=== PATIENT | female | born 1930 | race Caucasian/White ===

== ENCOUNTER 2017-01-15 10:46 | Outpatient (CLI) | payer MEDICARE, OTHER ==
--- NOTE | 2017-01-16 15:55 | Mammography Report ---
DIGITAL SCREENING MAMMOGRAM: 01/15/2017 CLINICAL INDICATION: An 86-year-old with history of late childbearing, for screening. COMPARISON: 12/2015, 12/2014, 11/2012, 11/2011, 11/2010, 10/2009, 11/2008, 09/2007. TECHNIQUE: Routine CC and MLO projections were obtained of the breasts. FINDINGS: The breasts again demonstrate scattered fibroglandular densities bilaterally. Coarse, typi hero benign calcifications are present. No suspicious masses, clustered microcalcifications, or tutu ons of architectural distortion are identified. Intramammary lymph nodes are stable. IMPRESSION: BENIGN FINDINGS. RECOMMENDATION: ROUTINE ANNUAL SCREENING UNLESS OTHERWISE CLINICALLY INDICATED. BIRADS CATEGORY 2-BENIGN FINDINGS. STANDARD QUALIFYING STATEMENTS 1. This examination was reviewed with the aid of Computer-Aided Detection (CAD). 2. A negative or benign imaging report should not delay biopsy if clinically suspicious findings are present. Consider surgical consultation if warranted. More than 5% of cancers are not identified by i maging. 3. Dense breasts may obscure an underlying neoplasm. JOB #: [id number] EXT JOB #:[id number]
== END 2017-01-15 10:47 | disposition home or self-care (01) ==
LOC: DI.N 10:46
PROVIDERS: ATTEND Internal Medicine
DX: Z12.31 Encounter for screening mammogram for malignant neoplasm of breast (principal)
CPT/HCPCS: 77067

== ENCOUNTER 2017-01-27 08:39 | Outpatient (CLI) | payer MEDICARE, OTHER | END 2017-01-27 08:40 | disposition critical access hospital (66) | LOC: EMS 08:39 | PROVIDERS: ATTEND Surgery | DX: S79.912A Unspecified injury of left hip, initial encounter (principal); W01.10XA Fall on same level from slipping, tripping and stumbling with subsequent striking against unspecified object, initial encounter; Y92.018 Other place in single-family (private) house as the place of occurrence of the external cause | CPT/HCPCS: A0425; A0427 ==

== ENCOUNTER 2017-01-27 08:57 | Inpatient (IN) | payer MEDICARE, OTHER ==
[2017-01-27] MEDS ORDERED: HYDROmorphone 1 MG/ML SYRINGE IVP STA ×3 (09:01→13:42)
[2017-01-27] MEDS ORDERED: ONDANSETRON 4 MG/2 ML VIAL IVP STA (09:01)
[2017-01-27] MEDS ORDERED: SODIUM CHLORIDE 0.9% 1,000 ML IV ONE (09:01)
--- NOTE | 2017-01-27 09:05 | ED Physician Documentation ---
History of Present Illness - Stated complaint Stated Complaint: GLF - Additonal information Additional information: hx from pt 86 female on coumadin for valve issue tripped over rug on porch and fell on L hip did not hit head does not heave head neck or back pain fell on L hip and has severe L hip and deformity Review of Systems Cardiac: denies: Chest pain / pressure GI: denies: Abdominal Pain Musculoskeletal: reports: Extremity pain, Joint pain. 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 - Present Medications Home Medications: Ambulatory Orders Medication Instructions Recorded Confirmed Cholestyramine [Cholestyramine 1 gm MC UD 10/22/13 01/27/17 Resin] Folic Acid 1 mg PO DAILY 10/22/13 01/27/17 Lansoprazole [Prevacid] 15 mg PO DAILY 10/22/13 01/27/17 Levothyroxine [Synthroid] 200 mcg PO QDAC 10/22/13 01/27/17 Losartan Potassium [Cozaar] 100 mg PO DAILY 10/22/13 01/27/17 Methotrexate Sodium [Methotrexate] 2.5 mg PO DAILY 10/22/13 01/27/17 Simvastatin [Zocor] 20 mg PO DAILY 10/22/13 01/27/17 Warfarin [Coumadin] 5 mg PO DAILY 10/22/13 01/27/17 Alendronate [Fosamax] 70 mg PO UD 01/27/17 01/27/17 - Allergies Allergies/Adverse Reactions: Allergies Allergy/AdvReac Type Severity Reaction Status Date / Time Sulfa (Sulfonamide Allergy Rash Verified 10/22/13 12:21 Antibiotics) - Social History Does the pt smoke?: No Smoking Status: Never smoker Does the pt drink ETOH?: No Does the pt have substance abuse?: No - Immunizations Immunizations are current?: No Immunizations: TDAP >10years/unknown PD ED PE NORMAL - Vitals Vital signs reviewed: Yes - General General: Alert and oriented X 3 - HEENT HEENT: Atraumatic, PERRL - Neck Neck: No bony TTP - Cardiac Cardiac: RRR - Respiratory Respiratory: No respiratory distress, Clear bilaterally - Abdomen Abdomen: Soft, Non tender - Derm Derm: Normal color - Extremities Extremities: Other (deformity to L hip ADD and internally roatted, also TTP to mid femur with some swelling, distal leg and knee NT, MSV intact) Results - Vitals Vitals: Vital Signs - 24 hr 01/27/17 01/27/17 01/27/17 09:00 10:00 10:30 Temperature 36.8 C Heart Rate 74 90 87 Respiratory 18 14 21 Rate Blood Pressure 152/59 H 144/52 H 150/61 H O2 Saturation 100 86 L 95 01/27/17 01/27/17 10:55 12:37 Temperature Heart Rate 86 84 Respiratory 14 18 Rate Blood Pressure 157/62 H 137/100 H O2 Saturation 100 97 Oxygen O2 Source Nasal cannula Oxygen Flow Rate 2 - EKG (time done) 1047 Rate: Rate (enter#) (85) Rhythm: NSR Acme: Normal Intervals: Normal AR QRS: Normal Ischemia: Normal ST segments - Labs Labs: Laboratory Tests 01/27/17 01/27/17 01/27/17 09:13 10:50 11:45 WBC 7.2 RBC 4.48 Hgb 11.9 L Hct 36.9 L MCV 82.2 MCH 26.5 L MCHC 32.2 RDW 17.7 H Plt Count 233 MPV 8.3 Neut # 6.0 Lymph # 0.9 L Coffey # 0.3 Eos # 0.0 Baso # 0.1 Absolute Nucleated RBC 0.00 Nucleated RBCs 0.0 Whole Blood INR 5.2 H* Sodium Potassium Chloride Carbon Dioxide Anion Gap BUN Creatinine Estimated GFR (MDRD) Glucose Calcium Blood Type O POSITIVE Antibody Screen NEGATIVE Crossmatch IS Only See Detail 01/27/17 01/27/17 01/27/17 11:45 11:45 11:45 WBC RBC Hgb 11.5 L Hct MCV MCH MCHC RDW Plt Count MPV Neut # Lymph # Coffey # Eos # Baso # Absolute Nucleated RBC Nucleated RBCs Whole Blood INR Sodium 139 Potassium 4.7 Chloride 108 Carbon Dioxide 21 Anion Gap 10.0 BUN 25 H Creatinine 1.0 Estimated GFR (MDRD) 53 L Glucose 126 H Calcium 8.6 Blood Type O POSITIVE Antibody Screen Crossmatch IS Only - Rads (name of study) CTH Radiology: See rad report (no bleed) pelvis/hip/femur Radiology: See rad report (angulated prox femur fx) CXR Radiology: See rad report (no acute) PD MEDICAL DECISION MAKING - ED course ED course: after seeing xray paged orthopedics Dr Pitts orthopedics was in the OR on another case in anticipation of pt going surgery today ordered vit K and K centra to rapidly reverse coumadin and prep pt for surgery Dr Pitts arrived in ER to eval pt and states he would prefer to give FFP rather than K-centra and operate tomorrow not today - so cancelled K centra but had been already been mixed by pharmacy per Dr Pitts give FFP 2 units now and he will order more later Dr Pitts gently reduced the fracture in the ER to be admitted to hospitalist with ortho consult I spoke to pt s cardiology group at [facility] - she is on lifelong coumadin for prior PEs DVTs, she has pulm HTN, CAD and vasovagal syncope, her last echo in 2012 showed EF 65-70%, grade 1 diastolic dysfxn, mild mitral stenosis and regurge Departure - Departure Disposition: 66 [facility] DC/Xfer Clinical Impression: Femur fracture Qualifiers: Encounter type: initial encounter Femur location: unspecified portion of femur Fracture type: closed Fracture morphology: unspecified fracture morphology Laterality: left Qualified Code(s): S72.92XA - Unspecified fracture of left femur, initial encounter for closed fracture Condition: Good
[2017-01-27] MEDS ORDERED: ONDANSETRON 4 MG/2 ML VIAL ONE (09:39)
[2017-01-27] MEDS ORDERED: HYDROmorphone 1 MG/ML SYRINGE ONE (09:39)
--- NOTE | 2017-01-27 09:58 | XRAY Preliminary Report ---
Exam: XR Hip w/Pelvis 2-3V LT IMPRESSION: Oblique angulated fracture of the proximal left femur. [facility] SITE ID: [id number]
--- NOTE | 2017-01-27 09:59 | XRAY Preliminary Report ---
Exam: XR Femur 2V LT IMPRESSION: Oblique angulated fracture of the proximal left femur. [facility] SITE ID: [id number]
--- NOTE | 2017-01-27 10:00 | XRAY Report ---
EXAM: LEFT HIP AND PELVIS RADIOGRAPHY EXAM DATE: 01/27/2017 09:44 AM. HISTORY: Fall deformity. COMPARISONS: None. TECHNIQUE: 1 view pelvis 3 views left hip. FINDINGS: Bones: There is an angulated oblique fracture of the proximal left femur just inferior to the lesser trochanter. There is lateral angulation of the fracture apex. The femoral head and neck appear intact . Joints: The bilateral hip, pubis symphysis, and sacroiliac joints are preserved. Soft Tissues: Normal. No soft tissue swelling. IMPRESSION: Oblique angulated fracture of the proximal left femur. [facility] Referring Provider Line: [phone] SITE ID: [id number]
--- NOTE | 2017-01-27 10:01 | XRAY Report ---
EXAM: LEFT FEMUR RADIOGRAPHY EXAM DATE: 01/27/2017 09:44 AM. CLINICAL HISTORY: Fall deformity. COMPARISON: None. TECHNIQUE: 2 views. FINDINGS: Bones: Oblique angulated fracture of the proximal left femur just inferior to the lesser trochanter. Joints: The visualized hip and knee joints are normal. No effusions. Soft Tissues: Normal. No soft tissue swelling. IMPRESSION: Oblique angulated fracture of the proximal left femur. [facility] Referring Provider Line: [phone] SITE ID: [id number]
--- NOTE | 2017-01-27 10:18 | CT Preliminary Report ---
Exam: CT Head W/O IMPRESSION: 1. No acute intracranial abnormality identified. Probable age-related parenchymal volume loss and chr onic microvascular ischemic change. [facility] SITE ID: [id number]
--- NOTE | 2017-01-27 10:20 | CT Report ---
EXAM: CT HEAD EXAM DATE: 01/27/2017 10:04 AM. CLINICAL HISTORY: Fall with deformity, elevated INR. COMPARISON: None. TECHNIQUE: Multiaxial CT images were obtained from the foramen magnum to the vertex. IV contrast: Non e. Reformats: Coronal. In accordance with CT protocol optimization, one or more of the following dose reduction techniques w ere utilized for this exam: automated exposure control, adjustment of mA and/or KV based on patient s ize, or use of iterative reconstructive technique. FINDINGS: Parenchyma: Evidence of diffuse parenchymal volume loss. No acute intracranial abnormality identified . Mild low-attenuation in the periventricular and subcortical white matter. No acute hemorrhage, mass effect, or midline shift. Extraaxial Spaces: No acute extra-axial collection. Ventricles: Appropriate in size and configuration. Sinuses: Small amount of ethmoid opacity, otherwise visualized portions are clear. Bones: No depressed skull fracture. Other: Atherosclerotic vascular calcification. IMPRESSION: 1. No acute intracranial abnormality identified. Probable age-related parenchymal volume loss and chr onic microvascular ischemic change. [facility] Referring Provider Line: [phone] SITE ID: [id number]
[2017-01-27 11:16] LABS: BASOPHILS # (AUTO) 0.1 10^3/uL (0.0-0.1); EOSINOPHILS % (AUTO) 0.6 %; HCT - HEMATOCRIT 36.9 % (37.0-47.0); HGB - HEMOGLOBIN 11.9 g/dL (12.0-16.0); LYMPHOCYTES # (AUTO) 0.9 10^3/uL (1.5-3.5); LYMPHOCYTES % (AUTO) 12.4 %; MEAN CORPUSCULAR HEMOGLOBIN 26.5 pg (27.0-31.0); MEAN CORPUSCULAR HGB CONC 32.2 g/dL (32.0-36.0); MEAN CORPUSCULAR VOLUME 82.2 fL (81.0-99.0); MEAN PLATELET VOLUME 8.3 fL (7.9-10.8); MONOCYTES # (AUTO) 0.3 10^3/uL (0.0-1.0); MONOCYTES % (AUTO) 3.7 %; NEUTROPHILS % (AUTO) 82.3 %; RED BLOOD COUNT 4.48 10^6/uL (4.20-5.40); RED CELL DISTRIBUTION WIDTH 17.7 % (12.0-15.0); UNCORRECTED WHITE BLOOD COUNT 7.2 x10^3/uL; WHITE BLOOD COUNT 7.2 x10^3/uL (4.8-10.8)
[2017-01-27] MEDS ORDERED: PHYTONADIONE 10 MG/ML AMP SUBQ STA (11:16)
[2017-01-27] MEDS ORDERED: PROTHROMBIN COMPLEX CONC 500 UNIT VIAL IVP STA (11:21)
[2017-01-27] MEDS ORDERED: PHYTONADIONE 10 MG/ML AMP ONE (11:30)
[2017-01-27] MEDS ORDERED: PROTHROMBIN COMPLEX CONC 500 UNIT VIAL IVP SCH (12:00)
[2017-01-27 12:10] LABS: CALCIUM 8.6 mg/dL (8.5-10.3); POTASSIUM 4.7 mmol/L (3.5-5.0)
--- NOTE | 2017-01-27 12:25 | XRAY Preliminary Report ---
Exam: XR Chest 1 View IMPRESSION: No focal consolidation. [facility] SITE ID: [id number]
--- NOTE | 2017-01-27 12:28 | XRAY Report ---
EXAM: CHEST RADIOGRAPHY EXAM DATE: 01/27/2017 12:14 PM. CLINICAL HISTORY: Pre-op. COMPARISON: None. TECHNIQUE: 1 view. FINDINGS: Lungs/Pleura: No focal opacities evident. No pleural effusion. No pneumothorax. Mediastinum: Within exam limitations, cardiomediastinal contour is normal. Other: None. IMPRESSION: No focal consolidation. [facility] Referring Provider Line: [phone] SITE ID: [id number]
--- NOTE | 2017-01-27 13:04 | HISTORY & PHYSICAL EXAMINATION ---
HPI - Admitted From Admitted from: ED (Orthopaedic Surgery was consulted by the ED about this 86 yo female who sustained an injury to her Left Hip when she tripped over a rug in her home and fell to floor. Denies LOC, syncope, or ather precipitating events.) - History Obtained From Records Reviewed: Old records reviewed History obtained from: Patient, Family Exam limitations: No limitations - History of Present Illness Severity at the worst: reports: Moderate Pain Quality: reports: Sharp Context-Pain started w/: reports: Other (Ground level fall.) Timing: reports: Abrupt onset Duration: reports: Hours: (4) Improved with: reports: Rest, Other (Positioning.) Worsened by: reports: Exertion, Movement, Palpation PMH/PSH - Past Medical History Cardiovascular: positive: Hypertension, High cholesterol, Valve disorder Respiratory: positive: Other (History of PE.) Neuro: positive: None Endocrine/Autoimmune: positive: None GI: positive: None : positive: None HEENT: positive: Other (Wears glasses.) Psych: positive: None Derm: positive: None MRSA Hx?: No - 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 - Social History Does the pt smoke?: No Smoking Status: Never smoker Does the pt drink ETOH?: No Does the pt have substance abuse?: No - POLST Patient has POLST: No POLST Status: Full Code Meds/Allgy - Home Medications Home Medications: Ambulatory Orders Medication Instructions Recorded Confirmed Cholestyramine [Cholestyramine 1 gm [facility] 10/22/13 01/27/17 Resin] Folic Acid 1 mg PO DAILY 10/22/13 01/27/17 Lansoprazole [Prevacid] 15 mg PO DAILY 10/22/13 01/27/17 Levothyroxine [Synthroid] 200 mcg PO QDAC 10/22/13 01/27/17 Losartan Potassium [Cozaar] 100 mg PO DAILY 10/22/13 01/27/17 Methotrexate Sodium [Methotrexate] 2.5 mg PO DAILY 10/22/13 01/27/17 Simvastatin [Zocor] 20 mg PO DAILY 10/22/13 01/27/17 Warfarin [Coumadin] 5 mg PO DAILY 10/22/13 01/27/17 Alendronate [Fosamax] 70 mg PO UD 01/27/17 01/27/17 - Allergies Allergies/Adverse Reactions: Allergies Allergy/AdvReac Type Severity Reaction Status Date / Time Sulfa (Sulfonamide Allergy Rash Verified 10/22/13 12:21 Antibiotics) Review of Systems - Hematologic/Lymphatic Hematologic/Lymphatic: reports: Blood clots (History of PE, DVTs for which she is on Coumadin.) - All Other Systems All Other Systems: reports: Reviewed and negative Exam - Vital Signs Reviewed Vital Signs: Yes Vital Signs: Vital Signs x48h Temp Pulse Resp BP Pulse Ox 01/27/17 12:37 84 18 137/100 H 97 01/27/17 10:55 86 14 157/62 H 100 01/27/17 10:30 87 21 150/61 H 95 01/27/17 10:00 90 14 144/52 H 86 L 01/27/17 09:00 36.8 C 74 18 152/59 H 100 - Physical Exam General Appearance: positive: Mild distress Eyes Bilateral: positive: Normal inspection ENT: positive: ENT inspection nml Neck: positive: Nml inspection Respiratory: positive: Chest non-tender, No respiratory distress, Breath sounds nml Cardiovascular: positive: Regular rate & rhythm Peripheral Pulses: positive: 2+ Abdomen: positive: Non-tender, Nml bowel sounds, No distention. negative: Guarding Back: positive: Nml inspection Skin: positive: Color nml, No rash, Warm, Dry Extremities: positive: Other (Tender to any manipulation of Left Leg at hip. Leg held in flexed internally rotated position but no shortening.). negative: Calf tenderness, Adriano's sign/cords Neurologic/Psychiatric: positive: Oriented x3, Motor nml, Sensation nml, Mood/ affect nml Results - Lab Results Fish Bones: 01/27/17 10:50 01/27/17 11:45 Other Lab Results: Lab Results x24hrs 01/27/17 01/27/17 01/27/17 Range/Units 11:45 11:45 11:45 WBC (4.8-10.8) x10^3/uL RBC (4.20-5.40) 10^6/uL Hgb (12.0-16.0) g/dL Hct (37.0-47.0) % MCV (81.0-99.0) fL MCH (27.0-31.0) pg MCHC (32.0-36.0) g/dL RDW (12.0-15.0) % Plt Count (130-450) 10^3/uL MPV (7.9-10.8) fL Neut # (1.5-6.6) 10^3/uL Lymph # (1.5-3.5) 10^3/uL Crittenden # (0.0-1.0) 10^3/uL Eos # (0.0-0.7) 10^3/uL Baso # (0.0-0.1) 10^3/uL Absolute Nucleated RBC x10^3/uL Nucleated RBCs /100WBC Whole Blood INR (0.8-1.2) Sodium 139 (135-145) mmol/L Potassium 4.7 (3.5-5.0) mmol/L Chloride 108 (101-111) mmol/L Carbon Dioxide 21 (21-32) mmol/L Anion Gap 10.0 (6-13) BUN 25 H (6-20) mg/dL Creatinine 1.0 (0.4-1.0) mg/dL Estimated GFR (MDRD) 53 L (>89) Glucose 126 H (70-100) mg/dL Calcium 8.6 (8.5-10.3) mg/dL Blood Type O POSITIVE O POSITIVE Antibody Screen NEGATIVE Crossmatch IS Only See Detail 01/27/17 01/27/17 Range/Units 10:50 09:13 WBC 7.2 (4.8-10.8) x10^3/uL RBC 4.48 (4.20-5.40) 10^6/uL Hgb 11.9 L (12.0-16.0) g/dL Hct 36.9 L (37.0-47.0) % MCV 82.2 (81.0-99.0) fL MCH 26.5 L (27.0-31.0) pg MCHC 32.2 (32.0-36.0) g/dL RDW 17.7 H (12.0-15.0) % Plt Count 233 (130-450) 10^3/uL MPV 8.3 (7.9-10.8) fL Neut # 6.0 (1.5-6.6) 10^3/uL Lymph # 0.9 L (1.5-3.5) 10^3/uL [place]enden # 0.3 (0.0-1.0) 10^3/uL Eos # 0.0 (0.0-0.7) 10^3/uL Baso # 0.1 (0.0-0.1) 10^3/uL Absolute Nucleated RBC 0.00 x10^3/uL Nucleated RBCs 0.0 /100WBC Whole Blood INR 5.2 H* (0.8-1.2) Sodium (135-145) mmol/L Potassium (3.5-5.0) mmol/L Chloride (101-111) mmol/L Carbon Dioxide (21-32) mmol/L Anion Gap (6-13) BUN (6-20) mg/dL Creatinine (0.4-1.0) mg/dL Estimated GFR (MDRD) (>89) Glucose (70-100) mg/dL Calcium (8.5-10.3) mg/dL Blood Type Antibody Screen Crossmatch IS Only - Diagnostic Imaging Results Diagnostic Imaging Results: positive: Read independently (Left femur comminuted subtrochanteric Fracture.) Impression/Plan - Problem List Problem List: Displaced Left Femur Comminuted Subtrochanteric Fracture, Closed. Fall from tripping, slipping, or stumbling. Plan: 1. Admit to Hospitalists. 2. NPO after midnight. 3. Normalize coags with FFP. Recheck INR in am and adjust as necessary. 4. To OR tomorrow for antegrade IM Nailing Left Femur Fracture.
[2017-01-27] MEDS ORDERED: diazePAM 5 MG TABLET PO STA (13:25)
[2017-01-27] MEDS ORDERED: diazePAM 5 MG TABLET PO ONE (13:26)
[2017-01-27] MEDS ORDERED: ONDANSETRON ODT 4 MG TABLET TL PRN (13:27)
--- NOTE | 2017-01-27 13:43 | HISTORY & PHYSICAL EXAMINATION ---
Chief Complaint - Chief Complaint Chief Complaint: Left hip/leg pain History of Present Illness - Admitted From Admitted From:: Emergency department - History Obtained From Records Reviewed: Yes History obtained from: Patient - History of Present Illness Pain/Problem Location Description: Left leg HPI Comment/Other: PT is a relatively healthy 86 year old female. She is on warfarin for pulmonic valve disease with supratherapeutic INR today of 5.1. She has controlled HTN and is on statin for hyperlipidemia. She denies recent falls, injury or illness prior to today. PT was out on her sun porch when she got a bucket to fill bird bath. She tripped and fell landing on her left side. She had immediate pain and was unable to get up. She denies head trauma or LOC. She denies syncope, dizziness , lightheadedness or blackout prior to her fall. SHE called for her who came within a couple minutes. EMS was called and she was transported to the ED, She was found to have an oblique angulated proximal left femur fracture. She was seen by orthopedic surgery who agreed to perform ORIF. Her INR will need reversed prior to surgery. She was T/C and screened for FFP. FFP was started in the ED. Review of Systems - Constitutional Constitutional: denies: Fatigue, Fever, Chills, Weakness, Night sweats - Eyes Eyes: denies: Pain, Irritation, Blurred vision, Vision loss - Ears, Nose & Throat Ears, Nose & Throat: denies: Ear pain, Hearing loss, Hearing aids - Cardiovascular Cariovascular: denies: Irregular heart rate, Palpitations, Chest pain, Edema, Lightheadedness, Syncope - Respiratory Respiratory: denies: Cough, Wheezing, SOB at rest, SOB with exertion - Gastrointestinal Gastrointestinal: denies: Abdominal pain, Diarrhea, Nausea, Vomiting - Genitourinary Genitourinary: denies: Dysuria, Frequency, Urgency - Musculoskeletal Musculoskeletal: reports: Muscle pain (Secondary to fall and fracture), Limited range of motion (Secondary to fall and fracture). denies: Back pain - Integumentary Integumentary: denies: Rash, Pruritis - Neurological Neurological: denies: General weakness, Focal weakness, Headache, Dizziness - Psychiatric Psychiatric: denies: Depression, Anxiety - Endocrine Endocrine: denies: Polyuria, Polydypsia - Hematologic/Lymphatic Hematologic/Lymphatic: reports: Other (Bruising from warfarin) History - Past Medical History Cardiovascular: reports: Hypertension, High cholesterol, Valve disorder Respiratory: reports: Other (History of PE.) Neuro: reports: None Endocrine/Autoimmune: reports: None GI: reports: None : reports: None HEENT: reports: Other (Wears glasses.) Psych: reports: None Derm: reports: None MRSA Hx?: No - 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 - Substance History Use: Uses substance without health or social issues: NONE Abuse: Recurrent use of substance despite neg consequences: NONE Dependence: Experiences withdrawal or developed tolerances: NONE - POLST Patient has POLST: No POLST Status: Full Code Meds/Allgy - Home Medications Home Medications: Ambulatory Orders Medication Instructions Recorded Confirmed Cholestyramine [Cholestyramine 1 gm [facility] 10/22/13 01/27/17 Resin] Folic Acid 1 mg PO DAILY 10/22/13 01/27/17 Lansoprazole [Prevacid] 15 mg PO DAILY 10/22/13 01/27/17 Levothyroxine [Synthroid] 200 mcg PO QDAC 10/22/13 01/27/17 Losartan Potassium [Cozaar] 100 mg PO DAILY 10/22/13 01/27/17 Methotrexate Sodium [Methotrexate] 2.5 mg PO DAILY 10/22/13 01/27/17 Simvastatin [Zocor] 20 mg PO DAILY 10/22/13 01/27/17 Warfarin [Coumadin] 5 mg PO DAILY 10/22/13 01/27/17 Alendronate [Fosamax] 70 mg PO UD 01/27/17 01/27/17 - Allergies Allergies/Adverse Reactions: Allergies Allergy/AdvReac Type Severity Reaction Status Date / Time Sulfa (Sulfonamide Allergy Rash Verified 10/22/13 12:21 Antibiotics) Exam - Vital Signs Reviewed Vital Signs: Yes Vital Signs: Vital Signs x48h Temp Pulse Resp BP Pulse Ox 01/27/17 12:37 84 18 137/100 H 97 01/27/17 10:55 86 14 157/62 H 100 01/27/17 10:30 87 21 150/61 H 95 06/11/17 10:00 90 14 144/52 H 86 L 01/27/17 09:00 36.8 C 74 18 152/59 H 100 - Physical Exam General Appearance: positive: No acute distress, Alert Eyes Bilateral: positive: Normal inspection, PERRL, EOMI, Other (arcus sinilis) ENT: positive: Pharynx nml. negative: Purulent nasal drainage, Pharyngeal erythema Neck: positive: Nml inspection, No JVD Respiratory: positive: Chest non-tender, No respiratory distress, Breath sounds nml Cardiovascular: positive: Regular rate & rhythm, No gallop, Systolic murmur. negative: JVD present Peripheral Pulses: positive: 2+ Abdomen: positive: Non-tender, No organomegaly, No distention Back: positive: Other (Exam limitied by hip fracture) Skin: positive: No rash, Warm, Dry Extremities: positive: Other (Left leg angulated with internal rotation) Neurologic/Psychiatric: positive: Oriented x3, CN's nml (2-12) Conclusion/Plan - Problem List (1) Femur fracture Conclusion/Plan: Secondary to a mechanical fall. Oblique angulated proximal left femur fracture. Will need surgical repair. INR 5.1 receiving FFP. Plan: Pain control. Reverse INR. Surgery anticipated tomorrow if INR acceptable. Qualifiers: Encounter type: initial encounter Femur location: unspecified portion of femur Fracture type: closed Fracture morphology: unspecified fracture morphology Laterality: left Qualified Code(s): S72.92XA - Unspecified fracture of left femur, initial encounter for closed fracture (2) HTN (hypertension) Conclusion/Plan: Controlled on home medications. Will monitor VS. Continue home medications (3) Pulmonic valve incompetence Conclusion/Plan: PT on warfarin for OAC. INR 5.1 Will reverse INR today for surgery. - Lab Results Fish Bones: 01/27/17 11:45 01/27/17 11:45 - Diagnostic Imaging Results Diagnostic Imaging Results: positive: Prelim report reviewed Issues/Core Measures - Anticipated LOS Anticipated Stay Length: 2 or more midnights - DVT/VTE - Prophylaxis VTE/DVT Device ordered at admit?: Yes VTE/DVT Prophylaxis med ordered at admit?: No Not Ordered - Medical Reason: Contraindicated - Stroke - Rehab Assessment Rehab services assessment to be ordered?: No
[2017-01-27] MEDS: SODIUM CHLORIDE FLUSH 0.9% 10 ML SYRINGE IVP SCH ×2 (14:50→21:10)
[2017-01-27] MEDS: PANTOPRAZOLE 40 MG TABLET PO SCH ×2 (14:57→21:10)
[2017-01-27] MEDS: HYDROcod/ACETAM 5/325 MG TABLET PO PRN ×2 (16:27→22:21)
[2017-01-27 20:24] LABS: INR 3.1 (0.8-1.2); PT - PROTHROMBIN TIME 35.2 secs (9.9-12.6)
[2017-01-27] MEDS: METHOCARBAMOL 500 MG TABLET PO PRN (21:10)
[2017-01-27] MEDS: ATORVASTATIN 10 MG TABLET PO SCH (21:10)
[2017-01-28] MEDS: HYDROmorphone 1 MG/ML SYRINGE IVP PRN ×3 (00:18→15:28)
[2017-01-28] MEDS: SODIUM CHLORIDE FLUSH 0.9% 10 ML SYRINGE IVP PRN ×2 (00:19→05:44)
[2017-01-28 02:57] LABS: INR 2.2 (0.8-1.2); PT - PROTHROMBIN TIME 25.6 secs (9.9-12.6)
[2017-01-28] MEDS: METHOCARBAMOL 500 MG TABLET PO PRN ×2 (03:04→11:02)
[2017-01-28] MEDS: SODIUM CHLORIDE 0.9% 1,000 ML IV SCH ×2 (05:44→21:53)
[2017-01-28] MEDS: HYDROcod/ACETAM 5/325 MG TABLET PO PRN (05:45)
[2017-01-28] MEDS: SODIUM CHLORIDE FLUSH 0.9% 10 ML SYRINGE IVP SCH ×3 (06:13→21:56)
[2017-01-28] MEDS: LEVOTHYROXINE 100 MCG TABLET PO SCH (06:14)
[2017-01-28] MEDS: CHOLESTYRAMINE 4 GM PACKET PO SCH (08:37)
[2017-01-28] MEDS: FOLIC ACID 1 MG TABLET PO SCH (08:37)
[2017-01-28] MEDS: PANTOPRAZOLE 40 MG TABLET PO SCH ×2 (08:37→21:53)
[2017-01-28] MEDS: LOSARTAN 50 MG TABLET PO SCH (08:37)
[2017-01-28 08:42] LABS: INR 1.7 (0.8-1.2); PT - PROTHROMBIN TIME 18.7 secs (9.9-12.6)
[2017-01-28] MEDS: POLYETHYLENE GLYCOL 3350 17 GM PACKET PO SCH (09:44)
--- NOTE | 2017-01-28 10:25 | PROVIDER PROGRESS NOTE ---
Assessment/Plan - Problem List (1) Femur fracture Qualifiers: Encounter type: initial encounter Femur location: unspecified portion of femur Fracture type: closed Fracture morphology: unspecified fracture morphology Laterality: left Qualified Code(s): S72.92XA - Unspecified fracture of left femur, initial encounter for closed fracture Assessment/Plan: PT will go to OR today for ORIF. INR 1.7 Will get 2 additional units of FFP to decrease INR further for surgical preparation. (2) HTN (hypertension) Assessment/Plan: Mildly elevated during hospitalization. No changes made Mild elevation likely from discomfort. (3) Pulmonic valve incompetence Assessment/Plan: Reversing INR due to need for surgery. Will cover with Heparin and restart warfarin tomorrow if OK with surgery team - Current Meds Current Meds: Current Medications Generic Name Dose Route Start Last Admin Trade Name Freq PRN Reason Stop Dose Admin Acetaminophen/Hydrocodone Bitart 1 tab 01/27/17 13:24 01/28/17 05:45 Anderson 5/325 PO 1 tab Q4H PRN Administration PAIN Atorvastatin Calcium 10 mg 01/27/17 21:00 01/27/17 21:10 Lipitor PO 10 mg QPM GRANT Administration Cholestyramine/Sucrose 4 gm 01/28/17 09:00 01/28/17 08:37 Questran PO 4 gm DAILY GRANT Administration Folic Acid 1 mg 01/28/17 09:00 01/28/17 08:37 PO 1 mg DAILY GRANT Administration Hydromorphone HCl 1 mg 01/27/17 13:23 01/28/17 08:32 Dilaudid Inj IVP 1 mg Q2H PRN Administration PAIN Sodium Chloride 1,000 mls @ 125 mls/hr 01/28/17 05:00 01/28/17 05:44 Normal Saline 0.9% IV 125 mls/hr .Q8H GRANT Administration Levothyroxine Sodium 200 mcg 01/28/17 07:00 01/28/17 06:14 Synthroid PO 200 mcg QDAC GRANT Administration Losartan Potassium 100 mg 01/28/17 09:00 01/28/17 08:37 Cozaar PO 100 mg DAILY GRANT Administration Methocarbamol 750 mg 01/27/17 13:22 01/28/17 03:04 Robaxin PO 750 mg Q6H PRN Administration Spasms Pantoprazole Sodium 40 mg 01/27/17 14:00 01/28/17 08:37 Protonix PO 40 mg BID GRANT Administration Polyethylene Glycol 17 gm 01/28/17 09:00 01/28/17 09:44 Miralax PO Not Given DAILY GRANT Sodium Chloride 10 ml 01/27/17 13:27 01/28/17 05:44 Normal Saline Flush 0.9% IVP 10 ml PRN PRN Administration NEEDED PER PROVIDER ORDERS Sodium Chloride 10 ml 01/27/17 14:00 01/28/17 06:13 Normal Saline Flush 0.9% IVP 10 ml Q8HR GRANT Administration - Lab Result Lab results reviewed: Yes Fish Bone Diagrams: 01/27/17 11:45 01/27/17 11:45 - Additional Planning Condition/Complexity: Stable My Orders: My Active Orders 01/28/17 10:02 Transfuse Fresh Frozen Plasma [RC] ONCE Plan Discussed with:: Patient Time Spent: Less than 15 minutes Subjective - Subjective Patient Reports: Dizzines (Mild dizziness today), Pain (Continues to have pain in the left leg. Mostly controlled with current medication.) Nursing Reports: No Complaints Objective Vital Signs: Vital Signs - 24 hr 01/27/17 01/27/17 01/27/17 14:00 14:30 16:11 Temperature 37 C 36.6 C 36.6 C Heart Rate 90 Heart Rate [ 87 90 Brachial] Respiratory 14 18 16 Rate Blood Pressure 146/56 H Blood Pressure 153/73 H [Left Brachial artery] Blood Pressure 140/61 H [Right Brachial artery] O2 Saturation 100 97 96 01/28/17 01/28/17 01/28/17 00:00 00:12 00:46 Temperature 36.7 C 37.1 C Heart Rate Heart Rate [ 85 82 80 Brachial] Respiratory 18 18 Rate Blood Pressure Blood Pressure 134/69 H [Left Brachial artery] Blood Pressure 151/68 H [Right Brachial artery] O2 Saturation 94 92 97 01/28/17 01/28/17 01/28/17 00:51 01:22 01:42 Temperature 36.4 C L 36.4 C L 36.6 C Heart Rate Heart Rate [ 82 84 78 Brachial] Respiratory 18 24 19 Rate Blood Pressure Blood Pressure [Left Brachial artery] Blood Pressure 137/65 H 139/70 H 141/67 H [Right Brachial artery] O2 Saturation 98 97 98 01/28/17 01/28/17 01/28/17 05:45 06:26 07:01 Temperature 36.3 C L 36.8 C 37.3 C Heart Rate Heart Rate [ 86 84 86 Brachial] Respiratory 22 23 19 Rate Blood Pressure Blood Pressure [Left Brachial artery] Blood Pressure 166/69 H 151/65 H 149/65 H [Right Brachial artery] O2 Saturation 97 96 97 01/28/17 07:21 Temperature 36.7 C Heart Rate Heart Rate [ 88 Brachial] Respiratory 20 Rate Blood Pressure Blood Pressure [Left Brachial artery] Blood Pressure 152/64 H [Right Brachial artery] O2 Saturation 97 Oxygen O2 Source Nasal cannula I&O (Last 24 Hrs): Intake and Output Totals x24h 01/26/17 01/27/17 01/28/17 23:59 23:59 23:59 Intake Total 266 638 Output Total 750 350 Balance -484 288 General: Alert, No acute distress HEENT: PERRLA, EOMI Neck: No JVD Neuro: Alert Cardiovascular: Regular rate, Other (2/6 TODD at LUSB) Respiratory: No respiratory distress, Breath sounds nml Abdomen: Normal bowel sounds - Results Results: Laboratory Results WBC 7.2 x10^3/uL (4.8-10.8) 01/27/17 10:50 RBC 4.48 10^6/uL (4.20-5.40) 01/27/17 10:50 Hgb 11.5 g/dL (12.0-16.0) L 01/27/17 11:45 Hct 36.9 % (37.0-47.0) L 01/27/17 10:50 MCV 82.2 fL (81.0-99.0) 01/27/17 10:50 MCH 26.5 pg (27.0-31.0) L 01/27/17 10:50 MCHC 32.2 g/dL (32.0-36.0) 01/27/17 10:50 RDW 17.7 % (12.0-15.0) H 01/27/17 10:50 Plt Count 233 10^3/uL (130-450) 01/27/17 10:50 MPV 8.3 fL (7.9-10.8) 01/27/17 10:50 Neut # 6.0 10^3/uL (1.5-6.6) 01/27/17 10:50 Lymph # 0.9 10^3/uL (1.5-3.5) L 01/27/17 10:50 Borden # 0.3 10^3/uL (0.0-1.0) 01/27/17 10:50 Eos # 0.0 10^3/uL (0.0-0.7) 01/27/17 10:50 Baso # 0.1 10^3/uL (0.0-0.1) 01/27/17 10:50 Absolute Nucleated RBC 0.00 x10^3/uL 01/27/17 10:50 Nucleated RBCs 0.0 /100WBC 01/27/17 10:50 PT 18.7 secs (9.9-12.6) H 01/28/17 08:30 INR 1.7 (0.8-1.2) H 01/28/17 08:30 Whole Blood INR 5.2 (0.8-1.2) H* 01/27/17 09:13 Sodium 139 mmol/L (135-145) 01/27/17 11:45 Potassium 4.7 mmol/L (3.5-5.0) 01/27/17 11:45 Chloride 108 mmol/L (101-111) 01/27/17 11:45 Carbon Dioxide 21 mmol/L (21-32) 01/27/17 11:45 Anion Gap 10.0 (6-13) 01/27/17 11:45 BUN 25 mg/dL (6-20) H 01/27/17 11:45 Creatinine 1.0 mg/dL (0.4-1.0) 01/27/17 11:45 Estimated GFR (MDRD) 53 (>89) L 01/27/17 11:45 Glucose 126 mg/dL (70-100) H 01/27/17 11:45 Calcium 8.6 mg/dL (8.5-10.3) 01/27/17 11:45 Blood Type O POSITIVE 01/27/17 22:10 Antibody Screen NEGATIVE 01/27/17 22:10 Crossmatch IS Only See Detail 01/27/17 11:45
[2017-01-28 13:03] LABS: INR 1.5 (0.8-1.2); PT - PROTHROMBIN TIME 16.9 secs (9.9-12.6)
[2017-01-28] MEDS: ACETAMINOPHEN 325 MG TABLET PO PRN ×2 (15:45→21:54)
[2017-01-28] MEDS ORDERED: BUPIVACAINE 0.5%-EPI 1:200000 PF 30 ML VIAL SUBQ ONE ×2 (16:55)
[2017-01-28] MEDS ORDERED: LACTATED RINGERS 1,000 ML IV ONE ×2 (16:57→20:01)
[2017-01-28] MEDS ORDERED: IPRATROPIUM 0.2 MG/ML NEB INH ONE (18:33)
[2017-01-28] MEDS ORDERED: ALBUTEROL NEB 2.5 MG/3 ML INH ONE (18:33)
--- NOTE | 2017-01-28 18:35 | OPERATIVE REPORT ---
Operative Report - General Admit Date: 01/27/17 Procedure Date: 01/28/17 Planned Procedure: Left Femur IM Nailing. Pre-Op Diagnosis: Displaced Fracture of Left Femur Shaft, closed. Post Op Diagnosis: Same. - Procedure Note Primary Surgeon: Sascha Horner MD Anesthesia Provider: Eugene Courtney CRNA Anesthesia Technique: General ET tube, Local Estimated Blood Loss (in cc): 200 Complications: None. - Other Other Information/Narrative: Implants: Biomet: IM Nail, Left 360 x 13 mm. Proximal Locking screws x 2, 90 mm and 100 mm. Distal Locking screw x 1, 35 mm. Fluids: 700 mL LR Urine: Adequate. Condition: Stable [facility]
--- NOTE | 2017-01-28 18:40 | XRAY Preliminary Report ---
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 There are 2 proximal screws on e of which extends across the trochanters while the second screw extends to the inferior margin/corti isauro margin of the femoral head and neck on these views. Fluoroscopic guidance provided for Dr. Pitts . Total fluoroscopy time: 49 seconds. Number of images: 3. [facility] SITE ID: [id number]
--- NOTE | 2017-01-28 18:42 | XRAY Report ---
EXAM: FLUOROSCOPIC GUIDANCE EXAM DATE: 01/28/2017 02:18 PM. CLINICAL HISTORY: Intramedullary balaji nailing. COMPARISON: None. 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 There are 2 proximal screws one of which extends across the trochanters while the second screw extends to the inferior mar gin/cortical margin of the femoral head and neck on these views. Fluoroscopic guidance provided for Tania Pitts. Total fluoroscopy time: 49 seconds. Number of images: 3. [facility] Referring Provider Line: [phone] SITE ID: [id number]
--- NOTE | 2017-01-28 19:25 | XRAY Preliminary Report ---
Exam: XR Chest 1 View IMPRESSION: Hypoinflation with mild left base atelectasis/infiltrate. [facility] SITE ID: [id number]
--- NOTE | 2017-01-28 19:28 | XRAY Report ---
EXAM: CHEST RADIOGRAPHY EXAM DATE: 01/28/2017 07:13 PM. CLINICAL HISTORY: Postop. Hypoxia. COMPARISON: 08/25/2008. TECHNIQUE: 1 view. FINDINGS: Lungs/Pleura: Hypoinflated lungs. Haziness of the left base, otherwise no focal opacities evident. No pleural effusion. No pneumothorax. Mediastinum: Large heart, partially due to hypoinflation. Other: Degenerative changes of both shoulders. 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 IMPRESSION: Hypoinflation with mild left base atelectasis/infiltrate. [facility] Referring Provider Line: [phone] SITE ID: [id number]
[2017-01-28] MEDS: ATORVASTATIN 10 MG TABLET PO SCH (21:53)
[2017-01-28] MEDS ORDERED: SODIUM CHLORIDE 0.9% 500 ML IV ONE (23:01)
[2017-01-28] MEDS: ceFAZolin 1 GM in SODIUM CHLORIDE 0.9% MINIBAG 100 ML IV SCH (23:41)
[2017-01-29] MEDS: SODIUM CHLORIDE 0.9% 1,000 ML IV SCH ×4 (00:49→23:20)
[2017-01-29] MEDS: HYDROcod/ACETAM 5/325 MG TABLET PO PRN ×3 (01:26→16:13)
[2017-01-29 05:40] LABS: INR 1.5 (0.8-1.2); PT - PROTHROMBIN TIME 17.5 secs (9.9-12.6)
[2017-01-29] MEDS: LEVOTHYROXINE 100 MCG TABLET PO SCH (05:49)
[2017-01-29] MEDS: ceFAZolin 1 GM in SODIUM CHLORIDE 0.9% MINIBAG 100 ML IV SCH ×2 (05:50→12:51)
[2017-01-29] MEDS: SODIUM CHLORIDE FLUSH 0.9% 10 ML SYRINGE IVP SCH ×3 (05:50→20:18)
[2017-01-29 08:02] LABS: BASOPHILS % (AUTO) 0.4 %; EOSINOPHILS % (AUTO) 0.1 %; HCT - HEMATOCRIT 27.4 % (37.0-47.0); LYMPHOCYTES # (AUTO) 0.4 10^3/uL (1.5-3.5); LYMPHOCYTES % (AUTO) 6.2 %; MEAN CORPUSCULAR HEMOGLOBIN 26.5 pg (27.0-31.0); MEAN CORPUSCULAR HGB CONC 32.8 g/dL (32.0-36.0); MEAN CORPUSCULAR VOLUME 80.8 fL (81.0-99.0); MEAN PLATELET VOLUME 8.3 fL (7.9-10.8); MONOCYTES # (AUTO) 0.5 10^3/uL (0.0-1.0); MONOCYTES % (AUTO) 8.5 %; NEUTROPHILS # (AUTO) 5.4 10^3/uL (1.5-6.6); NEUTROPHILS % (AUTO) 84.8 %; RED CELL DISTRIBUTION WIDTH 16.7 % (12.0-15.0); UNCORRECTED WHITE BLOOD COUNT 6.3 x10^3/uL; WHITE BLOOD COUNT 6.3 x10^3/uL (4.8-10.8)
[2017-01-29 08:12] LABS: ALBUMIN/GLOBULIN RATIO 1.2 (1.0-2.2); BILIRUBIN,TOTAL 0.6 mg/dL (0.2-1.0); BUN - BLOOD UREA NITROGEN 21 mg/dL (6-20); CALCIUM 7.3 mg/dL (8.5-10.3); CARBON DIOXIDE - CO2 22 mmol/L (21-32); CHLORIDE 107 mmol/L (101-111); CREATININE 1.6 mg/dL (0.4-1.0); GFR - MDRD 31 (>89); GLUCOSE 137 mg/dL (70-100); MAGNESIUM 1.6 mg/dL (1.7-2.8); PHOSPHORUS 3.9 mg/dL (2.5-4.6); POTASSIUM 4.5 mmol/L (3.5-5.0); SODIUM 139 mmol/L (135-145); TOTAL PROTEIN 5.8 g/dL (6.7-8.2)
[2017-01-29] MEDS: LOSARTAN 50 MG TABLET PO SCH (08:37)
[2017-01-29] MEDS: FOLIC ACID 1 MG TABLET PO SCH (08:37)
[2017-01-29] MEDS: CHOLESTYRAMINE 4 GM PACKET PO SCH (08:37)
[2017-01-29] MEDS: PANTOPRAZOLE 40 MG TABLET PO SCH ×2 (08:37→20:17)
[2017-01-29] MEDS: POLYETHYLENE GLYCOL 3350 17 GM PACKET PO SCH (08:38)
[2017-01-29 08:49] LABS: CALCIUM, IONIZED 0.98 mmol/L (1.15-1.33); VBG PH 7.338 (7.31-7.41)
[2017-01-29 08:55] LABS: INR 1.5 (0.8-1.2); PT - PROTHROMBIN TIME 17.4 secs (9.9-12.6)
[2017-01-29] MEDS ORDERED: MAGNESIUM SULFATE 2 GRAM 50 ML IV ONE (09:30)
[2017-01-29] MEDS ORDERED: CALCIUM GLUCONATE 2,000 MG in SODIUM CHLORIDE 0.9% 100ML 100 ML IV SCH (11:00)
[2017-01-29] MEDS: WARFARIN 5 MG TABLET PO SCH (13:34)
--- NOTE | 2017-01-29 15:48 | PROVIDER PROGRESS NOTE ---
Assessment/Plan - Problem List (1) Femur fracture, left Qualifiers: Fracture type: closed Fracture morphology: oblique Fracture alignment: nondisplaced Assessment/Plan: POD #1 after left femur IM nailing Post surgery patient became hypoxic requiring 10L of O2 Recovered well and down to 3L this am She likely was overloaded from FFPs and IVF Patients surgery was delayed secondary to elevated INR Will restart coumadin post op PT/OT eval Pain control Will likely need placement Surgery following (2) Hypoxia Assessment/Plan: Patient with hypoxia post op requiring 10 L of O2 but weaned down to 3L today Thought to likely be secondary to overload from FFP and IVFs Less likely to be secondary to PE but if PE patient on coumadin and treatment will not change 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 (5) HTN (hypertension) Qualifiers: Hypertension type: essential hypertension Qualified Code(s): I10 - Essential (primary) hypertension Assessment/Plan: BP elevated will continue home meds Monitor closely - Current Meds Current Meds: Current Medications Generic Name Dose Route Start Last Admin Trade Name Nikhilq PRN Reason Stop Dose Admin Acetaminophen 650 mg 01/27/17 13:27 01/28/17 21:54 Tylenol PO 650 mg Q4HR PRN Administration Pain 1 to 4 Acetaminophen/Hydrocodone Bitart 1 tab 01/27/17 13:24 01/29/17 11:15 Ola 5/325 PO 1 tab Q4H PRN Administration PAIN Atorvastatin Calcium 10 mg 01/27/17 21:00 01/28/17 21:53 Lipitor PO 10 mg QPM GRANT Administration Cholestyramine/Sucrose 4 gm 01/28/17 09:00 01/29/17 08:37 Questran PO 4 gm DAILY GRANT Administration Folic Acid 1 mg 01/28/17 09:00 01/29/17 08:37 PO 1 mg DAILY GRANT Administration Hydromorphone HCl 1 mg 01/27/17 13:23 01/28/17 15:28 Dilaudid Inj IVP 1 mg Q2H PRN Administration PAIN Sodium Chloride 1,000 mls @ 125 mls/hr 01/28/17 05:00 01/29/17 13:34 Normal Saline 0.9% IV 125 mls/hr .Q8H GRANT Administration Levothyroxine Sodium 200 mcg 01/28/17 07:00 01/29/17 05:49 Synthroid PO 200 mcg QDAC GRANT Administration Losartan Potassium 100 mg 01/28/17 09:00 01/29/17 08:37 Cozaar PO 100 mg DAILY GRANT Administration Methocarbamol 750 mg 01/27/17 13:22 01/28/17 11:02 Robaxin PO 750 mg Q6H PRN Administration Spasms Pantoprazole Sodium 40 mg 01/27/17 14:00 01/29/17 08:37 Protonix PO 40 mg BID GRANT Administration Polyethylene Glycol 17 gm 01/28/17 09:00 01/29/17 08:38 Miralax PO Not Given DAILY GRANT Sodium Chloride 10 ml 01/27/17 13:27 01/28/17 05:44 Normal Saline Flush 0.9% IVP 10 ml PRN PRN Administration NEEDED PER PROVIDER ORDERS Sodium Chloride 10 ml 01/27/17 14:00 01/29/17 13:31 Normal Saline Flush 0.9% IVP Not Given Q8HR GRANT Warfarin Sodium 5 mg 01/29/17 14:00 01/29/17 13:34 Coumadin PO 5 mg QDWARFARIN GRANT Administration - Lab Result Lab results reviewed: Yes Fish Bone Diagrams: 01/29/17 04:49 01/29/17 04:49 - EKG Results EKG Interpreted Independently: Yes - Diagnostic Imaging Results Diagnostic Imaging Results: positive: Final report reviewed - Additional Planning Condition/Complexity: Guarded My Orders: My Active Orders 01/29/17 Evaluate and Treat PT [PT] Routine 01/29/17 15:40 CALCIUM, IONIZED ([facility]) [BG] Stat 01/29/17 15:42 Admit \ Transfer \ Status [RC] ONCE 01/29/17 15:45 IO [IO] [RC] IOSHIFT Vital Signs [RC] Q4HR 01/29/17 Dinner DIET [Soft Mechanical Diet] [DIET] 01/30/17 05:00 CBC - COMP BLD CT W/AUTO DIFF [HEME] DAILYLAB CMP, RFLX TO IONIZED CA IF [CHEM] DAILYLAB MAGNESIUM [CHEM] DAILYLAB PHOSPHORUS [CHEM] DAILYLAB PT WITH INR [COAG] DAILYLAB 01/31/17 05:00 CBC - COMP BLD CT W/AUTO DIFF [HEME] DAILYLAB CMP, RFLX TO IONIZED CA IF [CHEM] DAILYLAB MAGNESIUM [CHEM] DAILYLAB PHOSPHORUS [CHEM] DAILYLAB PT WITH INR [COAG] DAILYLAB 02/01/17 05:00 CBC - COMP BLD CT W/AUTO DIFF [HEME] DAILYLAB CMP, RFLX TO IONIZED CA IF [CHEM] DAILYLAB MAGNESIUM [CHEM] DAILYLAB PHOSPHORUS [CHEM] DAILYLAB PT WITH INR [COAG] DAILYLAB 02/02/17 05:00 CBC - COMP BLD CT W/AUTO DIFF [HEME] DAILYLAB CMP, RFLX TO IONIZED CA IF [CHEM] DAILYLAB MAGNESIUM [CHEM] DAILYLAB PHOSPHORUS [CHEM] DAILYLAB PT WITH INR [COAG] DAILYLAB 02/03/17 05:00 CBC - COMP BLD CT W/AUTO DIFF [HEME] DAILYLAB CMP, RFLX TO IONIZED CA IF [CHEM] DAILYLAB MAGNESIUM [CHEM] DAILYLAB PHOSPHORUS [CHEM] DAILYLAB PT WITH INR [COAG] DAILYLAB Consult/Specialty: PT, Other (Ortho) Time Spent: 31-60 minutes Subjective - Subjective Patient Reports: Feeling Better (She states she feels much better and pain is well controlled. No fevers or chills last night. She denies any shortness of air or cough. Has not worked with PT yet.) Nursing Reports: No Complaints Objective Vital Signs: Vital Signs - 24 hr 01/28/17 01/28/17 01/28/17 16:05 18:20 18:25 Temperature 38.3 C H Heart Rate [ 119 H Brachial] Respiratory 16 Rate Blood Pressure [Left Brachial artery] Blood Pressure 157/65 H [Right Brachial artery] O2 Saturation 92 90 L 90 L 01/28/17 01/28/17 01/28/17 18:30 18:35 18:40 Temperature Heart Rate [ Brachial] Respiratory Rate Blood Pressure [Left Brachial artery] Blood Pressure [Right Brachial artery] O2 Saturation 90 L 90 L 93 01/28/17 01/28/17 01/28/17 18:45 18:50 19:00 Temperature Heart Rate [ Brachial] Respiratory Rate Blood Pressure [Left Brachial artery] Blood Pressure [Right Brachial artery] O2 Saturation 95 98 95 01/28/17 01/28/17 01/28/17 19:10 19:20 19:30 Temperature Heart Rate [ Brachial] Respiratory Rate Blood Pressure [Left Brachial artery] Blood Pressure [Right Brachial artery] O2 Saturation 93 94 95 01/28/17 01/28/17 01/28/17 19:40 19:55 20:05 Temperature Heart Rate [ Brachial] Respiratory Rate Blood Pressure [Left Brachial artery] Blood Pressure [Right Brachial artery] O2 Saturation 95 95 95 01/28/17 01/28/17 01/28/17 20:15 20:25 20:35 Temperature Heart Rate [ Brachial] Respiratory Rate Blood Pressure [Left Brachial artery] Blood Pressure [Right Brachial artery] O2 Saturation 98 95 97 01/28/17 01/28/17 01/28/17 20:45 20:55 21:10 Temperature Heart Rate [ Brachial] Respiratory Rate Blood Pressure [Left Brachial artery] Blood Pressure [Right Brachial artery] O2 Saturation 96 95 100 01/28/17 01/28/17 01/29/17 22:50 23:43 01:00 Temperature 37.1 C Heart Rate [ 90 92 84 Brachial] Respiratory 14 16 16 Rate Blood Pressure 90/55 L 110/52 L [Left Brachial artery] Blood Pressure 105/44 L [Right Brachial artery] O2 Saturation 97 94 93 01/29/17 01/29/17 01/29/17 01:43 03:00 04:00 Temperature 36.6 C Heart Rate [ 82 81 82 Brachial] Respiratory 20 15 18 Rate Blood Pressure 118/53 L 98/47 L [Left Brachial artery] Blood Pressure 113/45 L [Right Brachial artery] O2 Saturation 96 98 96 01/29/17 01/29/17 01/29/17 05:00 06:00 06:55 Temperature Heart Rate [ 82 85 84 Brachial] Respiratory 20 20 20 Rate Blood Pressure 116/45 L 132/60 H 120/59 L [Left Brachial artery] Blood Pressure [Right Brachial artery] O2 Saturation 95 97 98 01/29/17 01/29/17 01/29/17 07:56 08:41 09:58 Temperature 36.6 C Heart Rate [ 84 91 91 Brachial] Respiratory 20 16 20 Rate Blood Pressure 134/60 H [Left Brachial artery] Blood Pressure 148/55 H 136/59 H [Right Brachial artery] O2 Saturation 96 96 97 01/29/17 01/29/17 01/29/17 11:00 12:00 13:00 Temperature Heart Rate [ 98 104 H 98 Brachial] Respiratory 24 23 22 Rate Blood Pressure [Left Brachial artery] Blood Pressure 164/66 H 146/57 H 145/48 H [Right Brachial artery] O2 Saturation 92 94 95 01/29/17 01/29/17 14:00 15:00 Temperature Heart Rate [ 105 H 107 H Brachial] Respiratory 24 18 Rate Blood Pressure 131/62 H 142/69 H [Left Brachial artery] Blood Pressure [Right Brachial artery] O2 Saturation 95 92 Oxygen O2 Source Nasal cannula I&O (Last 24 Hrs): Intake and Output Totals x24h 01/27/17 01/28/17 01/29/17 23:59 23:59 23:59 Intake Total 266 1198 2875 Output Total 750 1400 397 Balance -484 -202 2478 General: Alert, Oriented x3, Cooperative, No acute distress HEENT: Atraumatic, PERRLA, EOMI, Other (dry mucus membranes) Neck: Supple, No JVD, No thyromegaly, +2 carotid pulse wo bruit, No LAD Lymphatic: no adenopathy Neuro: Alert, Non Focal, CN 2-12 Grossly Intact, Oriented Times 3 Cardiovascular: Regular rate, Normal S1, Normal S2, No murmurs Respiratory: Chest non-tender, Rales (Bibasilar) Abdomen: Normal bowel sounds, Soft, No tenderness, No hepatospenomegaly, No masses Extremities: No clubbing, No cyanosis, No edema, Normal pulses, Other (Left femur laterally swollen. [place] in place. Wound looks clean and dry.) Skin: No rashes, No breakdown - Results Results: Laboratory Results WBC 6.3 x10^3/uL (4.8-10.8) 01/29/17 04:49 RBC 3.40 10^6/uL (4.20-5.40) L 01/29/17 04:49 Hgb 9.0 g/dL (12.0-16.0) L 01/29/17 04:49 Hct 27.4 % (37.0-47.0) L 01/29/17 04:49 MCV 80.8 fL (81.0-99.0) L 01/29/17 04:49 MCH 26.5 pg (27.0-31.0) L 01/29/17 04:49 MCHC 32.8 g/dL (32.0-36.0) 01/29/17 04:49 RDW 16.7 % (12.0-15.0) H 01/29/17 04:49 Plt Count 187 10^3/uL (130-450) 01/29/17 04:49 MPV 8.3 fL (7.9-10.8) 01/29/17 04:49 Neut # 5.4 10^3/uL (1.5-6.6) 01/29/17 04:49 Lymph # 0.4 10^3/uL (1.5-3.5) L 01/29/17 04:49 Rogers # 0.5 10^3/uL (0.0-1.0) 01/29/17 04:49 Eos # 0.0 10^3/uL (0.0-0.7) 01/29/17 04:49 Baso # 0.0 10^3/uL (0.0-0.1) 01/29/17 04:49 Absolute Nucleated RBC 0.00 x10^3/uL 01/29/17 04:49 Nucleated RBCs 0.0 /100WBC 01/29/17 04:49 PT 17.4 secs (9.9-12.6) H 01/29/17 08:32 INR 1.5 (0.8-1.2) H 01/29/17 08:32 Whole Blood INR 5.2 (0.8-1.2) H* 01/27/17 09:13 VBG pH 7.338 (7.31-7.41) 01/29/17 04:49 Ionized Calcium 0.98 mmol/L (1.15-1.33) L 01/29/17 04:49 Sodium 139 mmol/L (135-145) 01/29/17 04:49 Potassium 4.5 mmol/L (3.5-5.0) 01/29/17 04:49 Chloride 107 mmol/L (101-111) 01/29/17 04:49 Carbon Dioxide 22 mmol/L (21-32) 01/29/17 04:49 Anion Gap 10.0 (6-13) 01/29/17 04:49 BUN 21 mg/dL (6-20) H 01/29/17 04:49 Creatinine 1.6 mg/dL (0.4-1.0) H 01/29/17 04:49 Estimated GFR (MDRD) 31 (>89) L 01/29/17 04:49 Glucose 137 mg/dL (70-100) H 01/29/17 04:49 Calcium 7.3 mg/dL (8.5-10.3) L 01/29/17 04:49 Ionized Calcium YES 01/29/17 04:49 Phosphorus 3.9 mg/dL (2.5-4.6) 01/29/17 04:49 Magnesium 1.6 mg/dL (1.7-2.8) L 01/29/17 04:49 Total Bilirubin 0.6 mg/dL (0.2-1.0) 01/29/17 04:49 AST 33 IU/L (10-42) 01/29/17 04:49 ALT 29 IU/L (10-60) 01/29/17 04:49 Alkaline Phosphatase 56 IU/L (42-121) 01/29/17 04:49 Total Protein 5.8 g/dL (6.7-8.2) L 01/29/17 04:49 Albumin 3.2 g/dL (3.2-5.5) 01/29/17 04:49 Globulin 2.6 g/dL (2.1-4.2) 01/29/17 04:49 Albumin/Globulin Ratio 1.2 (1.0-2.2) 01/29/17 04:49 Blood Type O POSITIVE 01/27/17 22:10 Antibody Screen NEGATIVE 01/27/17 22:10 Crossmatch IS Only See Detail 01/27/17 11:45
[2017-01-29 16:24] LABS: CALCIUM, IONIZED 1.07 mmol/L (1.15-1.33); VBG PH 7.384 (7.31-7.41)
[2017-01-29] MEDS ORDERED: SODIUM CHLORIDE 0.9% 100 ML BAG IV ONE (16:45)
[2017-01-29] MEDS ORDERED: DEXAMETHASONE 4 MG/ML VIAL IVP ONE (16:45)
[2017-01-29] MEDS ORDERED: ONDANSETRON 4 MG/2 ML VIAL IVP ONE (16:45)
[2017-01-29] MEDS ORDERED: ROCURONIUM 50 MG/5 ML VIAL IVP ONE (16:45)
[2017-01-29] MEDS ORDERED: fentaNYL 100 MCG/2 ML VIAL IVP ONE (16:45)
[2017-01-29] MEDS ORDERED: NEOSTIGMINE 1 MG/1 ML 10 ML MDV IVP ONE (16:45)
[2017-01-29] MEDS ORDERED: GLYCOPYRROLATE 1 MG/5 ML VIAL IVP ONE (16:45)
[2017-01-29] MEDS ORDERED: PROPOFOL 200 MG/20 ML VIAL IVP ONE (16:45)
[2017-01-29] MEDS ORDERED: SUCCINYLCHOLINE 200 MG/10 ML VIAL IVP ONE (16:45)
[2017-01-29] MEDS ORDERED: PHENYLEPHRINE 50 MG/5 ML VIAL IV ONE (16:45)
[2017-01-29] MEDS ORDERED: ACETAMINOPHEN 1,000 MG/100 ML VIAL IV ONE (16:45)
[2017-01-29] MEDS ORDERED: MIDAZOLAM 2 MG/2 ML VIAL IVP ONE (16:45)
[2017-01-29] MEDS ORDERED: KETOROLAC 30 MG/ML VIAL IVP ONE (16:45)
[2017-01-29] MEDS ORDERED: LIDOCAINE-MPF 2% 5 ML VIAL IM ONE (16:45)
[2017-01-29] MEDS: ACETAMINOPHEN 325 MG TABLET PO PRN (20:17)
[2017-01-29] MEDS: ATORVASTATIN 10 MG TABLET PO SCH (20:17)
[2017-01-29] MEDS: NYSTATIN POWDER 15 GM TOP SCH (20:18)
[2017-01-30] MEDS: SODIUM CHLORIDE FLUSH 0.9% 10 ML SYRINGE IVP SCH ×3 (05:50→20:05)
[2017-01-30] MEDS: LEVOTHYROXINE 100 MCG TABLET PO SCH (06:04)
[2017-01-30] MEDS: SODIUM CHLORIDE 0.9% 1,000 ML IV SCH (06:05)
[2017-01-30] MEDS: ACETAMINOPHEN 325 MG TABLET PO PRN ×2 (06:05→20:03)
[2017-01-30 06:07] LABS: BASOPHILS # (AUTO) 0.1 10^3/uL (0.0-0.1); EOSINOPHILS # (AUTO) 0.3 10^3/uL (0.0-0.7); EOSINOPHILS % (AUTO) 4.2 %; HCT - HEMATOCRIT 25.4 % (37.0-47.0); HGB - HEMOGLOBIN 8.2 g/dL (12.0-16.0); LYMPHOCYTES # (AUTO) 0.7 10^3/uL (1.5-3.5); LYMPHOCYTES % (AUTO) 10.2 %; MEAN CORPUSCULAR HEMOGLOBIN 26.4 pg (27.0-31.0); MEAN CORPUSCULAR HGB CONC 32.2 g/dL (32.0-36.0); MEAN CORPUSCULAR VOLUME 82.1 fL (81.0-99.0); MEAN PLATELET VOLUME 8.6 fL (7.9-10.8); MONOCYTES % (AUTO) 13.5 %; NEUTROPHILS # (AUTO) 5.1 10^3/uL (1.5-6.6); NEUTROPHILS % (AUTO) 71.1 %; NUCLEATED RED BLOOD CELLS AUTO 0.2 /100WBC; RED BLOOD COUNT 3.09 10^6/uL (4.20-5.40); RED CELL DISTRIBUTION WIDTH 17.3 % (12.0-15.0); UNCORRECTED WHITE BLOOD COUNT 7.1 x10^3/uL; WHITE BLOOD COUNT 7.1 x10^3/uL (4.8-10.8)
[2017-01-30 06:15] LABS: INR 1.5 (0.8-1.2)
[2017-01-30 06:24] LABS: ALBUMIN/GLOBULIN RATIO 1.1 (1.0-2.2); BILIRUBIN,TOTAL 0.8 mg/dL (0.2-1.0); BUN - BLOOD UREA NITROGEN 22 mg/dL (6-20); CALCIUM 7.2 mg/dL (8.5-10.3); CARBON DIOXIDE - CO2 20 mmol/L (21-32); CHLORIDE 111 mmol/L (101-111); CREATININE 1.1 mg/dL (0.4-1.0); GFR - MDRD 47 (>89); GLUCOSE 138 mg/dL (70-100); MAGNESIUM 1.8 mg/dL (1.7-2.8); PHOSPHORUS 1.5 mg/dL (2.5-4.6); POTASSIUM 4.1 mmol/L (3.5-5.0); SODIUM 139 mmol/L (135-145); TOTAL PROTEIN 5.4 g/dL (6.7-8.2)
[2017-01-30 06:35] LABS: PLATELET ESTIMATE, MANUAL NORMAL (130-450,000) (NORMAL); PLATELET MORPHOLOGY NORMAL APPEARANCE (NORMAL)
[2017-01-30 06:41] LABS: CALCIUM, IONIZED 1.01 mmol/L (1.15-1.33); VBG PH 7.412 (7.31-7.41)
[2017-01-30] MEDS: NEUTRA-PHOS 250 MG TABLET PO SCH ×3 (09:38→17:18)
[2017-01-30] MEDS: CHOLESTYRAMINE 4 GM PACKET PO SCH (09:38)
[2017-01-30] MEDS: FOLIC ACID 1 MG TABLET PO SCH (09:38)
[2017-01-30] MEDS: PANTOPRAZOLE 40 MG TABLET PO SCH ×2 (09:38→20:04)
[2017-01-30] MEDS: LOSARTAN 50 MG TABLET PO SCH (09:38)
[2017-01-30] MEDS: POLYETHYLENE GLYCOL 3350 17 GM PACKET PO SCH (09:39)
[2017-01-30] MEDS: NYSTATIN POWDER 15 GM TOP SCH ×2 (09:39→20:04)
[2017-01-30] MEDS: HYDROcod/ACETAM 5/325 MG TABLET PO PRN (11:08)
[2017-01-30] MEDS: WARFARIN 5 MG TABLET PO SCH (14:20)
--- NOTE | 2017-01-30 18:07 | PROVIDER PROGRESS NOTE ---
Assessment/Plan - Problem List (1) Femur fracture, left Qualifiers: Fracture type: closed Fracture morphology: oblique Fracture alignment: nondisplaced Assessment/Plan: POD #2 after left femur IM nailing Post surgery patient became hypoxic requiring 10L of O2 Recovered well and down to 2L and on Med/Surg She likely was overloaded from FFPs and IVF Patients surgery was delayed secondary to elevated INR Coumadin restarted PT/OT eval yesterday patient will likely need SNF Pain controlled Ortho following Talked to social work about possible SNF (2) Hypoxia Assessment/Plan: Patient with hypoxia post op requiring 10 L of O2 but weaned down to 3L today Thought to likely be secondary to overload from FFP and IVFs Less likely to be secondary to PE but if PE patient on coumadin and treatment will not change with patients digital measurement advisor could not get a CTPE CXR negative for pneumonia only showed atlectasis Continue O2 support Allow patient to self diurese Consider PE study if patient decompensates Patient down to 2L of O2 today no cough and not feeling short of air Patient is spiking low grade fevers if still requiring O2 tomorrow will consider CXR Patient also had increased congestion today after receiving IVFs again. (3) History of pulmonary embolism Assessment/Plan: Patient has history of PE and is on coumadin Coumadin held for surgery and INR reversed with FFP Restarted coumadin Patient became hypoxic post op could be from PE but no imaging as this would not pack changer INR 1.5 today (4) MATIAS (acute kidney injury) Assessment/Plan: Likely prerenal from surgery Will encourge good PO intake Given IVFs [employer] In[employer] improved Avoid nephrotoxic agents. (5) HTN (hypertension) Qualifiers: Hypertension type: essential hypertension Qualified Code(s): I10 - Essential (primary) hypertension Assessment/Plan: BP elevated will continue home meds Monitor closely - Current Meds Current Meds: Current Medications Generic Name Dose Route Start Last Admin Trade Name Freq PRN Reason Stop Dose Admin Acetaminophen 650 mg 01/29/17 20:05 01/30/17 06:05 Tylenol PO 650 mg Q4HR PRN Administration Pain or Fever > 38C (100.4F) Acetaminophen/Hydrocodone Bitart 1 tab 01/27/17 13:24 01/30/17 11:08 [place] 5/325 PO 1 tab Q4H PRN Administration PAIN Atorvastatin Calcium 10 mg 01/27/17 21:00 01/29/17 20:17 Lipitor PO 10 mg QPM GRANT Administration Cholestyramine/Sucrose 4 gm 01/28/17 09:00 01/30/17 09:38 Questran PO 4 gm DAILY GRANT Administration Folic Acid 1 mg 01/28/17 09:00 01/30/17 09:38 PO 1 mg DAILY GRANT Administration Hydromorphone HCl 1 mg 01/27/17 13:23 01/28/17 15:28 Dilaudid Inj IVP 1 mg Q2H PRN Administration PAIN Levothyroxine Sodium 200 mcg 01/28/17 07:00 01/30/17 06:04 Synthroid PO 200 mcg QDAC GRANT Administration Losartan Potassium 100 mg 01/28/17 09:00 01/30/17 09:38 Cozaar PO 100 mg DAILY GRANT Administration Methocarbamol 750 mg 01/27/17 13:22 01/28/17 11:02 Robaxin PO 750 mg Q6H PRN Administration Spasms Nystatin 1 applic 01/29/17 21:00 01/30/17 09:39 Nystop TOP 1 applic BID GRANT Administration Pantoprazole Sodium 40 mg 01/27/17 14:00 01/30/17 09:38 Protonix PO 40 mg BID GRANT Administration Polyethylene Glycol 17 gm 01/28/17 09:00 01/30/17 09:39 Miralax PO Not Given DAILY GRANT Sodium Chloride 10 ml 01/27/17 13:27 01/28/17 05:44 Normal Saline Flush 0.9% IVP 10 ml PRN PRN Administration NEEDED PER PROVIDER ORDERS Sodium Chloride 10 ml 01/27/17 14:00 01/30/17 14:20 Normal Saline Flush 0.9% IVP Not Given Q8HR GRANT Sodium Phosphate 250 mg 01/30/17 09:00 01/30/17 17:18 K-Phos Neutral PO 250 mg TIDWM GRANT Administration Warfarin Sodium 5 mg 01/29/17 14:00 01/30/17 14:20 Coumadin PO 5 mg QDWARFARIN GRANT Administration - Lab Result Lab results reviewed: Yes Fish Bone Diagrams: 01/30/17 05:19 01/30/17 05:19 - EKG Results EKG Interpreted Independently: Yes - Diagnostic Imaging Results Diagnostic Imaging Results: positive: Final report reviewed - Additional Planning Condition/Complexity: Improved My Orders: My Active Orders 01/29/17 21:00 Nystatin [Nystop] 1 applic TOP BID 01/30/17 09:00 Neutra-Phos [K-Phos Neutral] 250 mg PO TIDWM 01/31/17 05:00 CBC - COMP BLD CT W/AUTO DIFF [HEME] DAILYLAB CMP, RFLX TO IONIZED CA IF [CHEM] DAILYLAB MAGNESIUM [CHEM] DAILYLAB PHOSPHORUS [CHEM] DAILYLAB PT WITH INR [COAG] DAILYLAB 02/01/17 05:00 CBC - COMP BLD CT W/AUTO DIFF [HEME] DAILYLAB CMP, RFLX TO IONIZED CA IF [CHEM] DAILYLAB MAGNESIUM [CHEM] DAILYLAB PHOSPHORUS [CHEM] DAILYLAB PT WITH INR [COAG] DAILYLAB 02/02/17 05:00 CBC - COMP BLD CT W/AUTO DIFF [HEME] DAILYLAB CMP, RFLX TO IONIZED CA IF [CHEM] DAILYLAB MAGNESIUM [CHEM] DAILYLAB PHOSPHORUS [CHEM] DAILYLAB PT WITH INR [COAG] DAILYLAB 02/03/17 05:00 CBC - COMP BLD CT W/AUTO DIFF [HEME] DAILYLAB CMP, RFLX TO IONIZED CA IF [CHEM] DAILYLAB MAGNESIUM [CHEM] DAILYLAB PHOSPHORUS [CHEM] DAILYLAB PT WITH INR [COAG] DAILYLAB Consult/Specialty: PT, Other (Ortho) Plan Discussed with:: Patient, Family Time Spent: 15-30 minutes Subjective - Subjective Patient Reports: Feeling Better (Patient states pain in controlled. Denies chest pain or shortness of breath. She is working with PT but states it has been slow.) Nursing Reports: No Complaints Objective Vital Signs: Vital Signs - 24 hr 01/29/17 01/29/17 01/30/17 21:00 21:57 00:50 Temperature 38.3 C H 37.3 C 37.4 C Heart Rate [ 104 H 98 Brachial] Respiratory 18 24 Rate Blood Pressure 111/64 105/61 [Left Brachial artery] Blood Pressure [Right Brachial artery] O2 Saturation 96 93 01/30/17 01/30/17 01/30/17 05:00 08:57 13:00 Temperature 37.8 C H 36.9 C 37.2 C Heart Rate [ 95 94 94 Brachial] Respiratory 22 24 20 Rate Blood Pressure 131/68 H 118/66 [Left Brachial artery] Blood Pressure 106/64 [Right Brachial artery] O2 Saturation 93 95 99 06/14/17 15:50 Temperature 37.8 C H Heart Rate [ 107 H Brachial] Respiratory 20 Rate Blood Pressure 143/66 H [Left Brachial artery] Blood Pressure [Right Brachial artery] O2 Saturation 96 Oxygen O2 Source Room air I&O (Last 24 Hrs): Intake and Output Totals x24h 01/28/17 01/29/17 01/30/17 23:59 23:59 23:59 Intake Total 1198 4189 2001 Output Total 1400 927 850 Balance -202 3262 1152 General: Alert, Oriented x3, Cooperative, No acute distress HEENT: Atraumatic, PERRLA, EOMI, Mucous membr. moist/pink Neck: Supple, No JVD, No thyromegaly, +2 carotid pulse wo bruit, No LAD Lymphatic: no adenopathy Neuro: Alert, Non Focal, CN 2-12 Grossly Intact, Oriented Times 3 Cardiovascular: Regular rate, Normal S1, Normal S2, No murmurs Respiratory: Chest non-tender, No respiratory distress, Breath sounds nml Abdomen: Normal bowel sounds, Soft, No tenderness, No hepatospenomegaly, No masses Extremities: No clubbing, No cyanosis, No edema, Normal pulses, Other (Left leg with surgical site looks clean with swelling. Painful with ROM) Skin: No rashes, No breakdown, No significant lesion - Results Results: Laboratory Results WBC 7.1 x10^3/uL (4.8-10.8) 01/30/17 05:19 RBC 3.09 10^6/uL (4.20-5.40) L 01/30/17 05:19 Hgb 8.2 g/dL (12.0-16.0) L 01/30/17 05:19 Hct 25.4 % (37.0-47.0) L 01/30/17 05:19 MCV 82.1 fL (81.0-99.0) 01/30/17 05:19 MCH 26.4 pg (27.0-31.0) L 01/30/17 05:19 MCHC 32.2 g/dL (32.0-36.0) 01/30/17 05:19 RDW 17.3 % (12.0-15.0) H 01/30/17 05:19 Plt Count 168 10^3/uL (130-450) 01/30/17 05:19 MPV 8.6 fL (7.9-10.8) 01/30/17 05:19 Neut # 5.1 10^3/uL (1.5-6.6) 01/30/17 05:19 Lymph # 0.7 10^3/uL (1.5-3.5) L 01/30/17 05:19 [place] # 1.0 10^3/uL (0.0-1.0) 01/30/17 05:19 Eos # 0.3 10^3/uL (0.0-0.7) 01/30/17 05:19 Baso # 0.1 10^3/uL (0.0-0.1) 01/30/17 05:19 Absolute Nucleated RBC 0.02 x10^3/uL 01/30/17 05:19 Nucleated RBCs 0.2 /100WBC 01/30/17 05:19 Manual Slide Review Indicated 01/30/17 05:19 Platelet Estimate NORMAL (130-450,000) (NORMAL) 01/30/17 05:19 Platelet Morphology NORMAL APPEARANCE (NORMAL) 01/30/17 05:19 RBC Morph Micro Appear 1+ ANISOCYTOSIS (NORMAL) 1+ MACROCYTOSIS (NORMAL) 05:19 RBC Morph Micro Appear 1+ ANISOCYTOSIS (NORMAL) 1+ MACROCYTOSIS (NORMAL) 05:19 PT 17.0 secs (9.9-12.6) H 01/30/17 05:19 INR 1.5 (0.8-1.2) H 01/30/17 05:19 Whole Blood INR 5.2 (0.8-1.2) H* 01/27/17 09:13 VBG pH 7.412 (7.31-7.41) H 01/30/17 05:19 Ionized Calcium 1.01 mmol/L (1.15-1.33) L 01/30/17 05:19 Sodium 139 mmol/L (135-145) 01/30/17 05:19 Potassium 4.1 mmol/L (3.5-5.0) 01/30/17 05:19 Chloride 111 mmol/L (101-111) 01/30/17 05:19 Carbon Dioxide 20 mmol/L (21-32) L 01/30/17 05:19 Anion Gap 8.0 (6-13) 01/30/17 05:19 BUN 22 mg/dL (6-20) H 01/30/17 05:19 Creatinine 1.1 mg/dL (0.4-1.0) H 01/30/17 05:19 Estimated GFR (MDRD) 47 (>89) L 01/30/17 05:19 Glucose 138 mg/dL (70-100) H 01/30/17 05:19 Calcium 7.2 mg/dL (8.5-10.3) L 01/30/17 05:19 Ionized Calcium YES 01/30/17 05:19 Phosphorus 1.5 mg/dL (2.5-4.6) L 01/30/17 05:19 Magnesium 1.8 mg/dL (1.7-2.8) 01/30/17 05:19 Total Bilirubin 0.8 mg/dL (0.2-1.0) 01/30/17 05:19 AST 24 IU/L (10-42) 01/30/17 05:19 ALT 17 IU/L (10-60) 01/30/17 05:19 Alkaline Phosphatase 54 IU/L (42-121) 01/30/17 05:19 Total Protein 5.4 g/dL (6.7-8.2) L 01/30/17 05:19 Albumin 2.8 g/dL (3.2-5.5) L 01/30/17 05:19 Globulin 2.6 g/dL (2.1-4.2) 01/30/17 05:19 Albumin/Globulin Ratio 1.1 (1.0-2.2) 01/30/17 05:19 Blood Type O POSITIVE 01/27/17 22:10 Antibody Screen NEGATIVE 01/27/17 22:10 Crossmatch IS Only See Detail 01/27/17 22:10
[2017-01-30] MEDS: ATORVASTATIN 10 MG TABLET PO SCH (20:04)
[2017-01-31 06:19] LABS: BASOPHILS # (AUTO) 0.1 10^3/uL (0.0-0.1); BASOPHILS % (AUTO) 0.7 %; EOSINOPHILS # (AUTO) 0.4 10^3/uL (0.0-0.7); EOSINOPHILS % (AUTO) 4.1 %; HCT - HEMATOCRIT 25.5 % (37.0-47.0); HGB - HEMOGLOBIN 8.3 g/dL (12.0-16.0); LYMPHOCYTES # (AUTO) 0.8 10^3/uL (1.5-3.5); LYMPHOCYTES % (AUTO) 9.3 %; MEAN CORPUSCULAR HEMOGLOBIN 26.3 pg (27.0-31.0); MEAN CORPUSCULAR HGB CONC 32.6 g/dL (32.0-36.0); MEAN CORPUSCULAR VOLUME 80.7 fL (81.0-99.0); MEAN PLATELET VOLUME 8.2 fL (7.9-10.8); MONOCYTES # (AUTO) 1.1 10^3/uL (0.0-1.0); MONOCYTES % (AUTO) 12.6 %; NEUTROPHILS # (AUTO) 6.6 10^3/uL (1.5-6.6); NEUTROPHILS % (AUTO) 73.3 %; RED BLOOD COUNT 3.16 10^6/uL (4.20-5.40); RED CELL DISTRIBUTION WIDTH 16.8 % (12.0-15.0)
[2017-01-31 06:22] LABS: INR 1.5 (0.8-1.2); PT - PROTHROMBIN TIME 17.1 secs (9.9-12.6)
[2017-01-31 06:30] LABS: BILIRUBIN,TOTAL 0.9 mg/dL (0.2-1.0); BUN - BLOOD UREA NITROGEN 17 mg/dL (6-20); CALCIUM 7.2 mg/dL (8.5-10.3); CARBON DIOXIDE - CO2 22 mmol/L (21-32); CHLORIDE 110 mmol/L (101-111); GFR - MDRD 53 (>89); GLUCOSE 137 mg/dL (70-100); MAGNESIUM 1.7 mg/dL (1.7-2.8); SODIUM 139 mmol/L (135-145); TOTAL PROTEIN 5.3 g/dL (6.7-8.2)
[2017-01-31 06:45] LABS: CALCIUM, IONIZED 1.04 mmol/L (1.15-1.33); VBG PH 7.36 (7.31-7.41)
[2017-01-31] MEDS: SODIUM CHLORIDE FLUSH 0.9% 10 ML SYRINGE IVP SCH ×2 (06:47→14:01)
[2017-01-31] MEDS: LEVOTHYROXINE 100 MCG TABLET PO SCH (07:26)
[2017-01-31] MEDS: CHOLESTYRAMINE 4 GM PACKET PO SCH (08:09)
[2017-01-31] MEDS: NEUTRA-PHOS 250 MG TABLET PO SCH ×2 (08:11→11:58)
[2017-01-31] MEDS: traMADol 50 MG TABLET PO PRN ×2 (08:11→14:05)
[2017-01-31] MEDS: LOSARTAN 50 MG TABLET PO SCH (08:11)
[2017-01-31] MEDS: ACETAMINOPHEN 325 MG TABLET PO PRN ×2 (08:12→14:04)
[2017-01-31] MEDS: FOLIC ACID 1 MG TABLET PO SCH (08:12)
[2017-01-31] MEDS: PANTOPRAZOLE 40 MG TABLET PO SCH (08:15)
[2017-01-31] MEDS ORDERED: DOCUSATE SODIUM 250 MG CAPSULE PO SCH (09:00)
[2017-01-31] MEDS ORDERED: SENNA 8.6 MG TABLET PO SCH (09:00)
[2017-01-31] MEDS: POLYETHYLENE GLYCOL 3350 17 GM PACKET PO SCH (09:45)
[2017-01-31] MEDS: HYDROcod/ACETAM 5/325 MG TABLET PO PRN (11:48)
[2017-01-31] MEDS: NYSTATIN POWDER 15 GM TOP SCH (11:56)
[2017-01-31 13:57] VITALS: BP 114/63
[2017-01-31] MEDS: WARFARIN 5 MG TABLET PO SCH (14:04)
--- NOTE | 2017-01-31 16:11 | DISCHARGE SUMMARY ---
DATE OF ADMISSION: 01/27/2017 DATE OF DISCHARGE: 01/31/2017 PRIMARY CARE PHYSICIAN: Lion Betancourt M.D. DISCHARGING PHYSICIAN: Luis Schreiber MD DISCHARGE DIAGNOSES 1. Left femur fracture. 2. Hypoxia. 3. History of pulmonary embolism. 4. Acute kidney injury. 5. Hypertension. 6. Rheumatoid arthritis. 7. Hypothyroidism. 8. Hyperlipidemia. 9. Osteoporosis. DISCHARGE MEDICATIONS 1. Methotrexate 25 mg p.o. q.weekly. 2. Coumadin 5 mg p.o. daily. 3. Simvastatin 20 mg p.o. daily. 4. Losartan 100 mg p.o. daily. 5. Levothyroxine 200 mcg p.o. daily. 6. Folic acid 1 mg p.o. daily. 7. Fosamax 70 mg p.o. q.weekly. 8. Tylenol 1000 mg p.o. q.6 hours p.r.n. for pain. 9. Robaxin 750 mg p.o. q.6h. p.r.n. for muscle spasm. 10. Tramadol 50 mg p.o. q.4h. p.r.n. for pain. HOSPITAL COURSE: The patient is a very pleasant 86-year-old female who presented to the emergency [facility] on 01/[facility]/2017 after a mechanical fall where she fell on her left leg. The patient was found to have a proximal left femur fracture. On presentation, her INR was 5.1. Therefore, surgery was delayed unt il her INR was below 1.5. The patient received several units of FFPs, after which the INR was down to 1.5. The patient was taken to the OR and underwent a left femur intramedullary nailing. Patient postoperat ively became increasingly hypoxic, requiring 10 liters of oxygen. Initially was placed in the ICU on oxygen. The patient was weaned off of the oxygen over the course of the next 12 hours. The patient ap peared to likely have vascular congestion secondary to all the FFP that she did receive. The patient was able to transition off of oxygen. Her chest x-ray just showed some atelectasis. Patient was resta rted on her home dose of Coumadin. The patient continued to receive medication for pain control and was seen by Physical Therapy. She wa s progressing slowly with physical therapy, and she was recommended to go to a SNF. The home health care social worker s worked diligently to find her placement at [facility]. The patient was accept ed by [facility], as this was her first choice. She was discharged to [facility]. A verbal sign time-out wa s given to Dr. Mccain regarding the patient. The patient will require further physical therapy before she is able to transition home. The patient will follow up with Dr. Pitts of Orthopedic Surgery in 2 weeks. PHYSICAL EXAMINATION AT DISCHARGE VITAL SIGNS: Temperature 36.6, heart rate 94, blood pressure 114/63, respiratory rate 18, O2 saturati on 95% on room air. GENERAL: The patient does not appear to be in any acute distress. She is resting comfortably. She is alert and able to answer all my questions appropriately. HEENT: Pupils are equal and reactive to light. Extraocular muscles are intact. Mucous membranes are m oist. There is no conjunctival pallor or scleral icterus noted. NECK: Supple. No thyromegaly, no JVD. Trachea is midline. LYMPH NODES: There is no cervical or axillary lymphadenopathy noted. CARDIOVASCULAR: S1, S2, regular rate and rhythm. No murmurs, rubs, or gallops. LUNGS: There are some mild crackles in the bases. Otherwise, there is no wheezing, rhonchi, or respir atory distress. ABDOMEN: Soft, nontender, nondistended. Bowel sounds are present in all 4 quadrants. EXTREMITIES: No lower extremity edema. Peripheral pulses are palpable. There is no cyanosis or clubbi ng. SKIN: No skin rashes, lesions, cellulitis, or abscesses. MUSCULOSKELETAL: The patient has decreased range of motion in her left lower extremity secondary to s welling and pain from recent fracture and surgery. The patient otherwise has surgical site that is in tact and clean. NEUROLOGIC: The patient is alert and oriented x3. Cranial nerves 2 through 12 are grossly intact. Str ength is grossly normal. Sensations are intact. LABORATORY: WBC 9.0, hemoglobin 8.3, hematocrit 25.5, platelet count 163. INR 1.5. Ionized calcium 1. 04. Sodium 139, potassium 4.0, chloride 110, carbon dioxide 22, BUN 17, creatinine 1.0, glucose 137. Phosphorus 2.0, magnesium 1.7. Total bilirubin 0.9, AST 21, ALT 11, alkaline phosphatase 60, total pr otein 5.3, albumin 2.6. IMAGING X-ray of the left femur 01/27/2017: Oblique angulated fracture of the proximal left femur. CT head. Impression: No acute intracranial abnormality identified, probable age-related parenchymal v olume loss and chronic microvascular ischemic change. Chest x-ray 01/27/2017. Impression: No focal consolidation. Hip x-ray 01/28/2017. Impression: Intramedullary balaji is present with a distal locking screw, there ar e 2 proximal screws, one of which extends across the trochanters, while the second screw extends to t he inferior margin/cortical margin of the femoral head and neck on these views. Fluoroscopic guidance provided by for Dr. Pitts. Chest x-ray on 01/28/2017. Impression: Hypoinflation with mild left base atelectasis/infiltrate. FOLLOWUP/RECOMMENDATIONS: The patient is being discharged to [facility] for fur ther physical therapy. The patient presented here with a left femur fracture which was repaired by Or thopedic Surgery. She was improving slowly, but not well enough to return home without further physic al therapy and subacute rehabilitation. The patient's pain was controlled. She was discharged on tram adol, Tylenol, Robaxin for pain, and she otherwise was continued on her chronic home medications. She was stable at the time of discharge. TIME SPENT ON DISCHARGE: Greater than 30 minutes were spent on discharge. JOB #: [id number] EXT JOB #:[id number]
[2017-02-03] MEDS ORDERED: ALENDRONATE 70 MG TABLET PO SCH (07:00)
--- NOTE | 2017-03-07 14:20 | XRAY Report ---
C-ARM SERVICES: Fluoroscopy time only, no images submitted for interpretation. Fluoroscopy time 0 minutes, 49 seconds. JOSHD
--- NOTE | 2017-03-12 18:09 | OPERATIVE REPORT ---
DATE OF SURGERY: 01/28/2017 00:00:00 PREOPERATIVE DIAGNOSIS: Displaced subtrochanteric fracture of the left femur shaft, closed. POSTOPERATIVE DIAGNOSIS: Displaced subtrochanteric fracture of the left femur shaft, closed. NAME OF PROCEDURE: Left femur intramedullary nailing. SURGEON: Sascha Pitts MD. ANESTHESIA: General endotracheal with local to the wounds. ANESTHESIOLOGIST: Eugene Courtney CRNA. BLOOD LOSS: 200 mL. COMPLICATIONS: None. IMPLANTS 1. BioMed IM nail, left, 360 x 13 mm. 2. Proximal locking screws x2, 90 mm and 100 mm. 3. Distal interlocking screw x1, 35 mm. FLUIDS: 700 mL of Lactated Ringer's. URINE: Adequate. CONDITION AT END OF PROCEDURE: Stable. DISPOSITION: PACU, then Med/Surg. INDICATIONS: This is an 87-year-old female with several medical problems, who had sustained a fractur e of her left femur in the subtrochanteric region in a reverse oblique pattern in a ground level fall in her home. She was brought to the emergency room where radiographs confirmed the fracture. After d iscussion with the patient and her family, it was elected to bring her to the operating room to perfo rm an antegrade intramedullary nailing of the left femur. PROCEDURE IN DETAIL: After consent and identification, the patient was brought to the operating room in the supine position on the operating litter. After induction of a general endotracheal anesthesia and appropriate monitoring, the patient was transferred to the fracture table with a well-padded gregoria matt post in the perineum. The right lower extremity was placed in a well-padded Oneil boot with the hip flexed to 90 degrees abducted and internally rotated to allow the C-arm to come between the legs for fluoroscopy. The left lower extremity was placed into a well-padded boot, over-wrapped with Coban and attached to the traction boom. Using fluoroscopy, we effected longitudinal traction to the left lower extremity w ith internal and external rotation and achieved an acceptable reduction. We then prepped and draped t he left lower extremity in the usual sterile fashion for antegrade femoral nailing. After an appropriate timeout was conducted, we used fluoroscopy to localize our starting points. A lo ngitudinal incision, measuring approximately 5 cm was made over the lateral thigh, proximal to the ti p of the greater trochanter in line with the shaft of the femur. Skin and subcutaneous tissue was div ided as well as the external fascia to the gluteus medius musculature. Digital division of the gluteu s medius muscle was carried out down to the level of the greater trochanter. We localized our startin g point just anterior to piriformis fossa and placed a single guidewire, which was advanced by tappin g it with a mallet through the greater trochanter. We then used the 15 mm starting reamer over the gu idewire to effect a starting hole in the greater trochanter. The drill and guidewire were removed and a long ball-tip guidewire was advanced down the intramedullary canal of the femur. The curved tip of the guidewire was used to engage the distal fragment and advance the guidewire. We used a mallet dannielle tomasz against the lateral thigh to keep the proximal femur fragment in line with the distal fragment. W e then sequentially reamed over the ball-tip guidewire into the medullary canal in 1 mm increments up to a size 14.5 mm diameter. We selected a 13 x 360 mm antegrade femoral nail by measuring over the g uidewire. This was assembled to the insertion tower and inserted over the guidewire into the femur. T he guidewire was then removed. The external guide was then used to target 2 each interlocking screws in the proximal femur, one up the femoral neck and one across the anterior portion of the greater tro chanter posteromedially through the lesser trochanter. Traction on the traction boom was then removed , and we percussed the lower extremity with the knee in extension to seek the nail and remove any dis traction of the fraction fragments. We then used a perfect igiugig technique to target a single distal interlocking screw, measuring 35 mm, through the dynamic hole in the distal femur. Wounds were irrig ated and closed with interrupted 2-0 Vicryl sutures following repair of the external fascia of the gl uteus medius in the proximal wound. Subcuticular 2-0 Vicryl sutures were used followed by running 3-0 Monocryl suture to the dermis. Steri-Strips were placed with Mastisol. Aquacel Ag silver dressings w ere then placed over the wounds. On completion of the procedure, the patient was extubated and transf erred to the recovery room after fluoroscopic final images were obtained, in good condition, having t olerated the procedure well. JOB #: [id number] EXT JOB #:[id number]
== END 2017-01-31 14:45 | DRG 481 ==
LOC: EDUNIT# → ED 08:57 → MS 13:27 → ICU 01-28 21:23 → MS 01-29 17:04
PROVIDERS: ADMIT Physician Assistant; ATTEND Internal Medicine
PROC: 30233K1 Transfusion of Nonautologous Frozen Plasma into Peripheral Vein, Percutaneous Approach (ICD-10-PCS; 2017-01-27)
PROC: 0QS706Z Reposition Left Upper Femur with Intramedullary Internal Fixation Device, Open Approach (ICD-10-PCS; principal; 2017-01-28 13:15)
DX: S72.92XA Unspecified fracture of left femur, initial encounter for closed fracture (principal); S72.332A Displaced oblique fracture of shaft of left femur, initial encounter for closed fracture; N17.9 Acute kidney failure, unspecified; E78.00 Pure hypercholesterolemia, unspecified; R09.02 Hypoxemia; Z86.711 Personal history of pulmonary embolism; I27.2 Other secondary pulmonary hypertension; I25.10 Atherosclerotic heart disease of native coronary artery without angina pectoris; R55 Syncope and collapse; I10 Essential (primary) hypertension; M06.9 Rheumatoid arthritis, unspecified; Y93.9 Activity, unspecified; E03.9 Hypothyroidism, unspecified; Y99.9 Unspecified external cause status; E78.5 Hyperlipidemia, unspecified; M81.0 Age-related osteoporosis without current pathological fracture; I37.1 Nonrheumatic pulmonary valve insufficiency; Z79.01 Long term (current) use of anticoagulants; Z79.899 Other long term (current) drug therapy; W01.0XXA Fall on same level from slipping, tripping and stumbling without subsequent striking against object, initial encounter; Y93.89 Activity, other specified; Y92.008 Other place in unspecified non-institutional (private) residence as the place of occurrence of the external cause; Y99.8 Other external cause status
CPT/HCPCS: 36415; 51702; 70450; 71010; 80048; 80053; 82330; 83735; 84100; 85018; 85025; 85610; 86850; 86900; 86901; 86920; 87150; 93005; 93010; 96361; 96372; 96374; 96375; 99284

== ENCOUNTER 2018-01-27 09:29 | Outpatient (CLI) | payer MEDICARE, OTHER ==
--- NOTE | 2018-01-30 15:37 | Mammography Report ---
Procedure Date: 01/27/2018 Accession Number: [id number] / [id number] Procedure: MGN - Screening Mammo Dig Bilat CPT Code: FULL RESULT: EXAM: Screening Mammo Dig Bilat DATE: 01/27/2018 9:51 AM CLINICAL HISTORY: 87-year-old with history of late childbearing for screening TECHNIQUE: Bilateral CC and MLO views were obtained. COMPARISON: 01/15/2017, 12/22/2015, 12/22/2014, 12/01/2012, 12/03/2011, 411, 11/07/2009 FINDINGS: The breasts demonstrate diffuse fatty replacement bilaterally. Course, typically benign calcifications are present. No suspicious masses, clustered microcalcifications, or regions of architectural distortion are identified. IMPRESSION: Benign findings RECOMMENDATION: Routine annual screening unless otherwise clinically indicated. BIRADS CATEGORY 2: Benign findings STANDARD QUALIFYING STATEMENTS: 1. This examination was reviewed with the aid of Computer-Aided Detection (CAD). 2. A negative or benign imaging report should not delay biopsy if clinically suspicious findings are present. Consider surgical consultation if warrented. More than 5% of cancers are not identified by imaging. 3. Dense breasts may obscure an underlying neoplasm.
== END 2018-01-27 09:30 | disposition home or self-care (01) ==
LOC: DI.N 09:29
PROVIDERS: ATTEND Internal Medicine
DX: Z12.31 Encounter for screening mammogram for malignant neoplasm of breast (principal)
CPT/HCPCS: 77067

== ENCOUNTER 2018-03-03 00:45 | Outpatient (CLI) | payer MEDICARE, OTHER | END 2018-03-03 00:46 | disposition critical access hospital (66) | LOC: EMS 00:45 | PROVIDERS: ATTEND Surgery | DX: M54.5 Low back pain (principal); W10.8XXA Fall (on) (from) other stairs and steps, initial encounter; Y92.008 Other place in unspecified non-institutional (private) residence as the place of occurrence of the external cause | CPT/HCPCS: A0425; A0429 ==

== ENCOUNTER 2018-03-03 01:04 | Emergency (ER) | payer MEDICARE, OTHER ==
[2018-03-03] MEDS ORDERED: fentaNYL 100 MCG/2 ML VIAL IM STA (01:36)
--- NOTE | 2018-03-03 02:31 | ED Physician Documentation ---
PD HPI BACK INJURY - Stated complaint Stated Complaint: FALL - History obtained from History obtained from: Patient, EMS - History of Present Illness Location: Lower Type of injury: Fall Where injury occurred: Home Timing - onset: Today Timing - details: Abrupt onset Quality: Pain, Spasm Improved by: Immobilization Associated symptoms: No: Numbness, Incontinent of urine, Unable to urinate, Hematuria, Incontinent of stool Contributing factors: Anticoagulated. No: Prior back surgery Recently seen: Not recently seen - Additional information Additional information: patient is an 88 year old female presenting to the emergency department for back pain after falling. According to patient and ems patient fell earlier in the day, from on step about 6 inches landing on her gluteal region. Patient was ok at the time. patient denied any head trauma, loc, nausea or vomiting. Patient was able to go on with her daily activities. When patient got up to go to the bathroom tonight she had severe back pain with movement so she had her call ems. Review of Systems Ten Systems: 10 systems reviewed and negative Eyes: denies: Loss of vision, Decreased vision Ears: denies: Drainage/discharge GI: denies: Nausea, Vomiting : denies: Unable to Void, Incontinent Skin: denies: Rash, Lesions, Abrasion (s), Laceration (s) Musculoskeletal: reports: Back pain. denies: Extremity pain Neurologic: denies: Focal weakness, Numbness, Altered mental status, Headache, Head injury, LOC PD PAST MEDICAL HISTORY - Past Medical History Cardiovascular: Hypertension, High cholesterol, Pulmonary embolism, Valve disorder Respiratory: Other Endocrine/Autoimmune: None GI: None, Diverticulitis : None HEENT: Other Psych: None Musculoskeletal: Rheumatoid arthritis Derm: None - Past Surgical History Past Surgical History: Yes General: Other /[employer]: Hysterectomy HEENT: Cataracts - Present Medications Home Medications: Ambulatory Orders Medication Instructions Recorded Confirmed Folic Acid 1 mg PO DAILY 10/22/13 03/03/18 Levothyroxine [Synthroid] 200 mcg PO QDAC 10/22/13 03/03/18 Losartan Potassium [Cozaar] 100 mg PO DAILY 10/22/13 03/03/18 Simvastatin [Zocor] 20 mg PO DAILY 10/22/13 03/03/18 Warfarin [Coumadin] 5 mg PO DAILY 10/22/13 03/03/18 Alendronate [Fosamax] 70 mg PO UD 01/27/17 03/03/18 Methotrexate 25 mg PO Q7D 01/28/17 03/03/18 Oxycodone HCl/Acetaminophen 1 - 2 each PO Q6H PRN #10 tablet 03/03/18 [Percocet 5-325 mg Tablet] - Allergies Allergies/Adverse Reactions: Allergies Allergy/AdvReac Type Severity Reaction Status Date / Time Sulfa (Sulfonamide Allergy Rash Verified 03/03/18 01:10 Antibiotics) - Social History Does the pt smoke?: No Smoking Status: Never smoker Does the pt drink ETOH?: No Does the pt have substance abuse?: No - Immunizations Immunizations are current?: No Immunizations: TDAP >10years/unknown - POLST Patient has POLST: No POLST Status: Full Code PD ED PE NORMAL - Vitals Vital signs reviewed: Yes - General General: Alert and oriented X 3 - HEENT HEENT: Atraumatic - Neck Neck: No bony TTP - Cardiac Cardiac: RRR - Respiratory Respiratory: No respiratory distress - Abdomen Abdomen: Soft, Non tender, Non distended - Derm Derm: Normal color, No rash - Extremities Extremities: No deformity - Neuro Neuro: Alert and oriented X 3, No motor deficit, Normal speech Eye Opening: Spontaneous Motor: Obeys Commands Verbal: Oriented GCS Score: 15 PD ED PE EXPANDED - HEENT HEENT: Dry mucous membranes - Back Back: Vertebral tenderness (tenderness to thoracic and lumbar spine, and sacral region) Results - Vitals Vitals: Vital Signs - 24 hr 03/03/18 01:07 Temperature 36.5 C Heart Rate 77 Respiratory 18 Rate Blood Pressure 174/80 H O2 Saturation 95 Oxygen O2 Source Room air - Rads (name of study) ct thoracic spine Radiology: Final report received (no acute fracture) ct lumbar spine Radiology: Final report received (acute stable compression fracture or L1, other non acute findings), See rad report ct pelvis Radiology: Final report received (no acute fracture or dislocation) PD MEDICAL DECISION MAKING - ED course Complexity details: reviewed old records, reviewed results, re-evaluated patient , considered differential, d/w patient, d/w family ED course: Patient was seen and examined at bedside. patient was treated with fentanyl for pain and imaging was ordered. when patient returned form imaging the results were reviewed. patient was found to have a compression fracture of L1. Patient was offered a brace but she did not want it. Patient had no neurological deficits. patient was able to ambulate with assistance and was stable for discharge with outpatient followup. - Sepsis Event Vital Signs: Vital Signs - 24 hr 03/03/18 01:07 Temperature 36.5 C Heart Rate 77 Respiratory 18 Rate Blood Pressure 174/80 H O2 Saturation 95 Oxygen O2 Source Room air Departure - Departure Disposition: Home, Self Care Clinical Impression: Compression fx, lumbar spine Condition: Good Instructions: ED Fx Comp Vertebral Follow-Up: Shant Gresham MD [Provider Admit Priv/Credential] - Prescriptions: Oxycodone HCl/Acetaminophen [Percocet 5-325 mg Tablet] 1 - 2 each PO Q6H PRN # 10 tablet PRN Reason: pain Comments: Your symptoms today are being caused by a compression fracture of your lumbar spine just above your pelvis. You are being put in a brace for comfort. You should call the orthopedist office tomorrow (Dr. Gresham) to schedule a follow up appointment. you can take tylenol as needed for pain, and percocet for breakthrough pain. you should ice your spine at least 4 times a day. You should return to the emergency department at any time for worsening symptoms.
--- NOTE | 2018-03-03 02:40 | CT Report ---
Procedure Date: 03/03/2018 Accession Number: [id number] / [id number] Procedure: CT - Pelvis W/O CPT Code: FULL RESULT: EXAM: CT BONY PELVIS WITHOUT CONTRAST EXAM DATE: 03/03/2018 02:12 AM. CLINICAL HISTORY: Fall, back and pelvic pain. COMPARISON: Pelvic x-ray same day. TECHNIQUE: Thin-section axial images were acquired of the pelvis without contrast. Post-processing: Coronal and sagittal reformats. Other: None. In accordance with CT protocol optimization, one or more of the following dose reduction techniques were utilized for this exam: automated exposure control, adjustment of mA and/or KV based on patient size, or use of iterative reconstructive technique. FINDINGS: Bones: Moderate generalized osteopenia. No visible fracture. Left femoral neck hip screw is noted. The underlying fracture has healed. The hip screw penetrates the femoral head posteriorly, and protrudes approximately 6 mm into the joint space, abutting the posteroinferior acetabulum. There are healed fractures of left superior and inferior pubic ramus. 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 Sacroiliac Joints: Moderate bilateral sacroiliac joint osteoarthritis. Severe degenerative change of the lower lumbar spine. Symphysis Pubis: Unremarkable. Right Hip: Moderate osteoarthritis. Left Hip: Moderate osteoarthritis. Musculature: Normal. No fatty atrophy. 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 Extensive atherosclerosis. Moderate fecal loading of the rectum. Numerous colonic diverticula. Other: No lymphadenopathy. No free air or free fluid. The other visualized soft tissues are unremarkable. IMPRESSION: 1. No acute fracture. 2. 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 3. Old fracture of the left superior and inferior pubic rami. 4. Left femoral neck screw penetrates the posteroinferior cortex of the femoral head and extends into the joint space. 5. Right internal iliac artery aneurysm. RADIA
--- NOTE | 2018-03-03 02:41 | CT Report ---
Procedure Date: 03/03/2018 Accession Number: [id number] / [id number] Procedure: CT - Thoracic Spine W/O CPT Code: FULL RESULT: EXAM: CT THORACIC SPINE WITHOUT CONTRAST EXAM DATE: 03/03/2018 02:08 AM. CLINICAL HISTORY: Fall, back and pelvic pain. COMPARISONS: None. TECHNIQUE: Thin-section axial images were acquired of the thoracic spine from C7 to L1 without contrast. Post-processing: Coronal and sagittal reformats. Other: None. IV Contrast: None. In accordance with CT protocol optimization, one or more of the following dose reduction techniques were utilized for this exam: automated exposure control, adjustment of mA and/or KV based on patient size, or use of iterative reconstructive technique. FINDINGS: Alignment: No scoliosis or spondylolisthesis. Bones: The bones are demineralized. There is no acute thoracic spine fracture. Disk Levels/Facets: C7-T1: Unremarkable. T1-T2: Unremarkable. T2-T3: Unremarkable. T3-T4: Unremarkable. T4-T5: Unremarkable. T5-T6: Unremarkable. T6-T7: Unremarkable. T7-T8: Unremarkable. T8-T9: Unremarkable. T9-T10: Unremarkable. T10-T11: Unremarkable. T11-T12: Unremarkable. T12-L1: Unremarkable. Musculature: There is mild diffuse fatty atrophy of the posterior paraspinal muscles. Other: A left adrenal adenoma measures 2.0 x 2.4 cm. IMPRESSION: No acute thoracic spine fracture or malalignment. RADIA
--- NOTE | 2018-03-03 02:50 | CT Report ---
Procedure Date: 03/03/2018 Accession Number: [id number] / [id number] Procedure: CT - Lumbar Spine W/O CPT Code: FULL RESULT: EXAM: CT LUMBAR SPINE WITHOUT CONTRAST EXAM DATE: 03/03/2018 02:10 AM. CLINICAL HISTORY: Fall, back and pelvic pain. COMPARISONS: None. TECHNIQUE: Thin-section axial images were acquired of the lumbar spine from T12 to S1 without contrast. Post-processing: Coronal and sagittal reformats. Other: None. In accordance with CT protocol optimization, one or more of the following dose reduction techniques were utilized for this exam: automated exposure control, adjustment of mA and/or KV based on patient size, or use of iterative reconstructive technique. FINDINGS: Alignment: Grade 1 anterolisthesis is present at L3-L4 measuring 4 mm. Dextroscoliosis is present with the apex at L2. Bones: Five [id number] lumbar vertebral bodies are present. There is an acute anterior wedge compression fracture of L1 with 20% vertebral body height loss. A chronic appearing incomplete burst fracture of L2 is noted with 4 mm of retropulsion of the posterosuperior vertebral body into the spinal canal and approximately 30% vertebral body height loss. Disk Levels/Facets: T12-L1: Unremarkable. L1-L2: A disk bulge with facet arthropathy and ligamentum flavum infolding results in mild spinal canal stenosis. There is mild left foraminal narrowing. The right foramen is patent. L2-L3: A disk bulge with facet arthropathy and ligamentum flavum infolding result in moderate spinal canal stenosis. There is moderate left and mild right foraminal narrowing. L3-L4: Anterolisthesis with facet arthropathy and ligamentum flavum infolding result in severe spinal canal stenosis. There is mild bilateral foraminal narrowing. L4-L5: A disk bulge with facet arthropathy and ligamentum flavum infolding result in moderate spinal canal stenosis. There is moderate bilateral foraminal narrowing. L5-S1: A disk bulge and bilateral facet arthropathy and disk height loss result in moderate bilateral foraminal narrowing. The spinal canal is patent. Musculature: There is moderate diffuse fatty atrophy of the posterior paraspinal muscles. Other: Colonic diverticulosis is noted. Bilateral renal cysts are noted. However, there may be additional small hemorrhagic cysts in the bilateral kidneys measuring 8 mm on the right (image 30, series 5) and 8 mm on the left (image 26, series 5). Multiple nonobstructing bilateral renal calculi are also noted. A benign appearing peripherally calcified soft tissue nodule is noted in the right hemipelvis measuring 2.9 cm (image 134, series 5). IMPRESSION: 1. Acute anterior wedge compression fracture of L1 with 20% loss of vertebral body height. This is an AOSpine A1 type fracture and is stable. 2. Chronic incomplete L2 burst fracture with mild retropulsion resulting in mild spinal canal stenosis. Vertebral body height loss measures approximately 30%. 3. Multilevel degenerative changes are most pronounced at L3-L4 where there is severe spinal canal stenosis. RADIA
[2018-03-03] MEDS ORDERED: oxyCODONE/ACET 5/325 Prepack 4 PO STA (03:22)
[2018-03-03 04:08] VITALS: BP 160/81
== END 2018-03-03 03:45 | disposition home or self-care (01) ==
LOC: EDUNIT# → ED 01:04 → SUPCPDRO 01:04 → ED 03:45
DX: S32.010A Wedge compression fracture of first lumbar vertebra, initial encounter for closed fracture (principal); W10.9XXA Fall (on) (from) unspecified stairs and steps, initial encounter; Y92.007 Garden or yard of unspecified non-institutional (private) residence as the place of occurrence of the external cause; I10 Essential (primary) hypertension; E78.00 Pure hypercholesterolemia, unspecified; Z86.711 Personal history of pulmonary embolism
CPT/HCPCS: 72128; 72131; 72192; 96372; 99283

== ENCOUNTER 2018-10-09 10:15 | Outpatient (CLI) | payer MEDICARE, OTHER ==
--- NOTE | 2018-10-10 08:02 | DEXA Report ---
Reason: AGE-RELATED OSTEOPOROSIS W/O CURRENT PATHOLOGICAL Procedure Date: 10/09/2018 Accession Number: [id number] / [id number] Procedure: DEX - Dexa Spine and/or Hip CPT Code: FULL RESULT: EXAM: Dexa Spine and/or Hip DATE: 10/09/2018 11:04 AM CLINICAL HISTORY: AGE-RELATED OSTEOPOROSIS W/O CURRENT PATHOLOGICAL TECHNIQUE: Dual energy x-ray absorptiometry (DXA) was performed on a [employer] System. Regions measured are the AP Spine, femoral neck, and if needed forearm. COMPARISON: None. In accordance with the International Society for Clinical Densitometry (ISCD) guidelines, data from previous exams may be reanalyzed using current recommendations and techniques. This is done to allow a more accurate basis for comparison with the current study. FINDINGS: The data for the lumbar spine is as follows: BMD (g/cm/cm) T-SCORE Z-SCORE REGION L1 1.548 3.5 5.4 L2 1.394 1.6 3.5 L3 1.494 2.5 4.4 L4 1.548 2.9 4.8 TOTAL 1.494 2.6 4.5 NOTE: All evaluable vertebrae are used for classification The data for the hip is as follows: BMD (g/cm/cm) T-SCORE Z-SCORE REGION Neck 0.718 -2.3 0.2 TOTAL 0.656 -2.8 -0.4 NOTE: The femoral neck or total proximal femur, whichever is lowest, is used for classification. IMPRESSION: THE WHO CLASSIFICATION BASED ON THE INTERNATIONAL REFERENCE STANDARD IS OSTEOPOROSIS. THE FRACTURE RISK IS HIGH. RECOMMENDATION: Patients with diagnosis of osteoporosis or osteopenia should have regular bone mineral density assessment. For those eligible for Medicare, routine testing is allowed once every 2 years. Testing frequency can be increased for patients who have rapidly progressing disease or for those who are receiving medical therapy to restore bone mass. COMMENT: World Health Organization (WHO) definitions for osteoporosis and osteopenia: NORMAL BMD: T-score at -1.0 or higher, fracture risk is low OSTEOPENIA BMD: T-score between -1.0 and -2.5, fracture risk is increased. OSTEOPOROSIS BMD: T-score at -2.5 or lower, fracture risk is high. National Osteoporosis Foundation recommends: 1. Obtain adequate dietary calcium (at least 1200 mg per day) and vitamin D (400-800 international units per day). 2. Participate, as appropriate, in regular weightbearing and muscle-strengthening exercise. 3. Avoid tobacco use and reduce alcohol and caffeine intake. 4. For more detailed information see the website at www.NOF.org.
== END 2018-10-09 10:16 | disposition home or self-care (01) ==
LOC: DI 10:15
PROVIDERS: ATTEND Internal Medicine
DX: M81.0 Age-related osteoporosis without current pathological fracture (principal)
CPT/HCPCS: 77080

== ENCOUNTER 2019-01-25 16:38 | Outpatient (CLI) | payer MEDICARE, OTHER | END 2019-01-25 16:39 | disposition short-term general hospital (02) | LOC: EMS 16:38 | PROVIDERS: ATTEND Surgery | DX: R41.82 Altered mental status, unspecified (principal); R00.0 Tachycardia, unspecified; R50.9 Fever, unspecified | CPT/HCPCS: A0425; A0427 ==